=== PATIENT | male | born 1950 | race Caucasian/White ===

== ENCOUNTER → 2020-02-04 10:00 | Outpatient (CLI) | payer MEDICARE, SELFPAY ==
--- NOTE | ~2020-02-04 | XR_ITS ---
XR chest 2V 02/04/2020 10:28 Indication: Asthma. Dyspnea. Procedure: 2 view chest Comparison: Comparison to multiple prior studies sequentially, with oldest reviewed study dated 12/17. Findings: Focal asymmetry in the right apex is identified. There is left basilar infiltrate. Heart si ze normal. Pacemaker leads are stable. Impression: 1: Left basilar infiltrates, atelectasis versus pneumonia. 2: Focal asymmetry right apex. Follow-up CT chest with contrast recommended to exclude mass. Reviewed, dictated and finalized at location A. Impression: 1: Left basilar infiltrates, atelectasis versus pneumonia. 2: Focal asymmetry right apex. Follow-up CT chest with contrast recommended to exclude mass.
== END ==
PROVIDERS: PCP Family Medicine; Visit Provider Family Medicine
DX: J45.909 Unspecified asthma, uncomplicated (principal); R91.8 Other nonspecific abnormal finding of lung field
CPT/HCPCS: 71046

== ENCOUNTER 2020-02-06 13:49 | Outpatient (CLI) | payer MEDICARE, SELFPAY ==
--- NOTE | ~2020-02-06 | CT_ITS ---
EXAMINATION:CT chest w con DATE: 02/06/2020 14:30 INDICATION: Abnormal chest radiographs. TECHNIQUE: Computed tomography (CT) of the chest was performed with 75 mL Omnipaque 350 intravenous c ontrast. Automated exposure control and iterative reconstruction technique were employed. The dose-le ngth product (DLP) was 898.12 mGy-cm. COMPARISON: Chest 2 views 02/04/2020, chest CT 10/04/2016 FINDINGS: The lungs demonstrate mild atelectasis. No pleural effusion. There is left atrial enlargeme nt of the heart. There are coronary artery calcifications. No pericardial effusion. There is a left c hest wall pacer with leads in the right atrium and right ventricle. There are surgical changes of the stomach. There is chronic eventration of anterior right hemidiaphragm. There is a right shoulder art hroplasty. There are bridging endplate osteophytes at multiple levels in the spine, consistent with d iffuse idiopathic skeletal hyperostosis (DISH). There is mild chronic anterior wedging of multiple th oracic vertebral bodies. IMPRESSION: 1. No evidence of malignancy. Reviewed, dictated and finalized at location A.
[2020-02-06 14:23] LABS: Estimated Glomerular Filt Rate > 60
== END 2020-02-06 13:50 | disposition home or self-care (01) ==
LOC: ANHIMG 13:55
PROVIDERS: PCP Family Medicine; Visit Provider Nurse Practitioner Family
DX: R93.89 Abnormal findings on diagnostic imaging of other specified body structures (principal)
CPT/HCPCS: 36415; 71260; Q9967

== ENCOUNTER 2020-08-06 11:22 | Emergency (ER) | payer MEDICARE, SELFPAY ==
[2020-08-06 11:37] VITALS: BP 131/67; PULSE 91; RESP 14; TEMP 36.4; O2SAT 99
--- NOTE | 2020-08-06 11:43 | ED.MALEGU ---
HPI - Male Genitourinary General Chief complaint: Urogenital-Male Stated complaint: uti? Time Seen by Provider: 08/06/20 11:43 Source: patient Mode of arrival: ambulatory Limitations: no limitations History of Present Illness HPI Narrative: Patient is a 69-year-old male with a history of Parkinson's disease, chronic pain who presents for evaluation of urinary retention. 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 Patient was able to have a small amount of urination this morning. He reports some mild lower pelvic pressure. Patient states in the past he has had urinary tract infection leading to urinary retention as well as prostate issues causing urinary retention. He has intermittently required insertion of Gibbons catheters until the retention resolves and often develops retention after surgeries with general anesthesia. Patient denies fever, chills, cough or shortness of breath. Related Data Home Medications Medication Instructions Recorded Confirmed albuterol sulfate 90 mcg/actuation 1 puff INHALATION Q4H PRN 10/31/19 08/06/20 aerosol inhaler cyanocobalamin (vitamin B-12) 100 mcg IM MONTHLY 10/31/19 08/06/20 1,000 mcg/mL injection solution furosemide 40 mg tablet 40 mg PO BID 10/31/19 08/06/20 mirtazapine 30 mg tablet 45 mg PO DAILY tablet 10/31/19 08/06/20 nitroglycerin 0.4 mg sublingual 0.4 mg SUBLINGUAL Q5M PRN 10/31/19 08/06/20 tablet potassium chloride 20 mEq 40 meq PO BID tablet 10/31/19 08/06/20 tablet,extended release sotalol 80 mg tablet 160 mg PO BID tablet 10/31/19 08/06/20 alprazolam 0.5 mg tablet 0.5 mg PO .COMPLEX 12/30/19 08/06/20 carbidopa 25 mg-levodopa 100 mg 2 tablet PO TID tablet 01/06/20 08/06/20 tablet fludrocortisone 0.1 mg tablet 0.1 mg PO BID tablet 01/06/20 08/06/20 oxycodone 15 mg tablet 7.5 mg PO Q6H PRN tablet 08/06/20 08/06/20 Allergies Allergy/AdvReac Type Severity Reaction Status Date / Time midodrine Allergy Intermediate heated red Verified 08/06/20 09:55 rash dichloralphenazone Allergy Mild RED,RASH Verified 08/06/20 09:55 isometheptene Allergy Mild RED,RASH Verified 08/06/20 09:55 amiodarone Allergy Unknown Unknown Verified 08/06/20 09:55 Review of Systems Review of Systems: Narrative: CONSTITUTIONAL: Denies fever CARDIOVASCULAR: Denies chest pain RESPIRATORY: Denies cough or dyspnea. 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 EYES: PERRLA and EOMI. ENT: Nares clear, no rhinorrhea or epistaxis. Mucous membranes moist. NECK: Supple. CHEST: No respiratory distress, breathing even and non labored HEART: Regular rate, sinus rhythm ABDOMEN:Non distended, mild suprapubic tenderness : Testicular edema EXTREMITIES: Normal range of motion. No edema. SKIN: Warm, dry, no rash. NEURO:No focal deficits. Alert and oriented x3 Course Vital Signs Vital signs: Vital Signs Temperature 36.4 C
[2020-08-06 12:06] LABS: Add Urine Microscopic? YES; Appearance Urine Clear (Clear); Bacteria Urine Trace /hpf; Bilirubin Urine Negative (Negative); Blood Urine Negative (Negative); Color Urine Yellow (Yellow); Glucose Urine UA Negative (Negative); Ketones Urine Negative (Negative); Leukocyte Esterase Ur Negative LEU/UL (Negative); Mucus Urine Rare /lpf; Nitrate Urine Negative (Negative); Protein Urine 1+ mg/dL (Negative); Specific Grav Ur 1.019 (1.001-1.035); Squamous Epithelial Cell Urine Occasional /hpf (Few); WBC Urine 0-3 /hpf
[2020-08-06 12:09] LABS: Basophils Percent Auto 0.5 % (0.2-1.2); Eosinophils Absolute Auto 0.1 K/mm3 (0-0.3); Eosinophils Percent Auto 1.8 % (0-4.4); Hematocrit 36.2 % (42.0-52.0); Hemoglobin 11.5 g/dL (14.0-18.0); Immature Granulocyte Absolute 0.02 K/mm3 (0.00-0.031); Immature Granulocyte Percent A 0.3 % (0-0.5); Lymphocytes Absolute Auto 2.08 K/mm3 (0.9-3.2); Lymphocytes Percent Auto 31.8 % (18.3-44.2); Mean Corpuscular HGB Conc 31.8 g/dl (32-36); Mean Corpuscular Hemoglobin 28.7 pg (26-34); Mean Corpuscular Volume 90.3 fl (80-100); Mean Platelet Volume 9.8 fl (7.4-10.4); Monocytes Absolute Auto 0.7 K/mm3 (0.1-0.6); Monocytes Percent Auto 10.2 % (2.6-8.5); Neutrophils Absolute Auto 3.6 K/mm3 (1.3-6.7); Neutrophils Percent Auto 55.4 % (45.5-73.1); Platelet Count Result 226 k/mm3 (150-375); Red Blood Count 4.01 M/mm3 (4.6-6.20); Red Cell Distribution Width 16.2 % (11.5-14.5); White Blood Count 6.6 K/mm3 (4.5-10.0)
[2020-08-06 12:21] LABS: Anion Gap 5 mmol/L (8-16); Blood Urea Nitrogen 14 mg/dL (9-20); Calcium 8.1 mg/dL (8.4-10.2); Carbon Dioxide 33 mmol/L (22-30); Chloride 101 mmol/L (98-107); Estimated CRCL calculation 116 ml/min; Estimated Glomerular Filt Rate > 60; Glucose 114 mg/dL (75-110); Potassium 3.3 mmol/L (3.4-5.0); Sodium 139 mmol/L (137-145)
[2020-08-06 14:22] VITALS: BP 132/68; PULSE 78; RESP 18; O2SAT 99
== END 2020-08-06 14:24 | disposition home or self-care (01) ==
PROVIDERS: Emergency Provider Emergency Medicine; PCP Family Medicine
DX: R33.9 Retention of urine, unspecified (principal); J45.909 Unspecified asthma, uncomplicated; M47.812 Spondylosis without myelopathy or radiculopathy, cervical region; M48.02 Spinal stenosis, cervical region; N40.0 Benign prostatic hyperplasia without lower urinary tract symptoms; D50.9 Iron deficiency anemia, unspecified; M47.816 Spondylosis without myelopathy or radiculopathy, lumbar region; E78.2 Mixed hyperlipidemia; G20 Parkinson's disease; I48.91 Unspecified atrial fibrillation; E11.42 Type 2 diabetes mellitus with diabetic polyneuropathy; Z79.4 Long term (current) use of insulin
CPT/HCPCS: 36415; 80048; 81001; 85025; 99283

== ENCOUNTER 2021-06-09 10:18 | Outpatient (NON) | payer MEDICARE, SELFPAY ==
[2021-06-09 11:05] LABS: Alanine Aminotransferase 8 U/L (4-50); Albumin Level 3.4 g/dL (3.5-5.1); Alkaline Phosphatase 107 U/L (38-126); Anion Gap 8 mmol/L (8-16); Aspartate Amino Transferase 20 U/L (17-59); Bilirubin,Total 0.6 mg/dL (0.2-1.3); Blood Urea Nitrogen 15 mg/dL (9-20); Calcium 8.4 mg/dL (8.4-10.2); Carbon Dioxide 34 mmol/L (22-30); Chloride 99 mmol/L (98-107); Cholesterol 124 mg/dL (0-200); Estimated Glomerular Filt Rate > 60; Glucose 95 mg/dL (75-110); HDL Direct 30 mg/dL; Potassium 2.6 mmol/L (3.4-5.0); Sodium 141 mmol/L (137-145); Triglycerides 135 mg/dL (<150)
[2021-06-09 11:16] LABS: LDL Cholesterol Direct 65 mg/dL
[2021-06-09 11:17] LABS: Iron 38 ug/dL (49-181)
[2021-06-09 11:26] LABS: Percent Iron Saturation 10 % (20-50)
[2021-06-09 11:36] LABS: Prostate Specific Antigen < 0.1 ng/mL (< OR = 4.0)
[2021-06-09 12:01] LABS: Basophils Percent Auto 0.7 % (0.2-1.2); Eosinophils Absolute Auto 0.1 K/mm3 (0-0.3); Eosinophils Percent Auto 3.2 % (0-4.4); Hematocrit 35.3 % (42.0-52.0); Hemoglobin 10.4 g/dL (14.0-18.0); Immature Granulocyte Absolute 0.01 K/mm3 (0.00-0.031); Immature Granulocyte Percent A 0.2 % (0-0.5); Lymphocytes Absolute Auto 1.37 K/mm3 (0.9-3.2); Lymphocytes Percent Auto 33.3 % (18.3-44.2); Mean Corpuscular HGB Conc 29.5 g/dl (32-36); Mean Corpuscular Hemoglobin 24.6 pg (26-34); Mean Corpuscular Volume 83.6 fl (80-100); Mean Platelet Volume 10.2 fl (7.4-10.4); Monocytes Absolute Auto 0.4 K/mm3 (0.1-0.6); Monocytes Percent Auto 9.5 % (2.6-8.5); Neutrophils Absolute Auto 2.2 K/mm3 (1.3-6.7); Neutrophils Percent Auto 53.1 % (45.5-73.1); Platelet Count Result 225 k/mm3 (150-375); Red Blood Count 4.22 M/mm3 (4.6-6.20); Red Cell Distribution Width 17.6 % (11.5-14.5); White Blood Count 4.1 K/mm3 (4.5-10.0)
[2021-06-09 12:05] LABS: Hemoglobin A1C 5.1 % (<5.7)
[2021-06-09 12:07] LABS: Anisocytosis 1+ (NORMAL); Hypochromasia 2+ (NORMAL); Microcytosis 2+ (NORMAL); Platelet Estimate Adequate (Adequate)
[2021-06-09 12:08] LABS: Ovalocytes 1+ (NORMAL)
[2021-06-09 12:12] LABS: Creatinine Urine 224.9 mg/dL
[2021-06-09 12:16] LABS: MALB Creatinine Ratio 6.3 mg/g (0-30); Microalbumin Urine Random 14.1 mg/L (0-16.7)
[2021-06-09 12:29] LABS: Vitamin D 25 Hydroxy 13.3 ng/mL
== END 2021-06-09 10:19 | disposition home or self-care (01) ==
LOC: ANHLAB 10:22 → HOME HLTH 10:24
PROVIDERS: PCP Family Medicine; Visit Provider Family Medicine
DX: D50.9 Iron deficiency anemia, unspecified (principal); E78.2 Mixed hyperlipidemia; G63 Polyneuropathy in diseases classified elsewhere; Z13.220 Encounter for screening for lipoid disorders; E11.40 Type 2 diabetes mellitus with diabetic neuropathy, unspecified; Z79.4 Long term (current) use of insulin; N40.0 Benign prostatic hyperplasia without lower urinary tract symptoms
CPT/HCPCS: 80048; 80061; 80076; 82043; 82306; 82607; 83036; 83540; 83550; 84153; 85025

== ENCOUNTER 2021-06-14 10:21 | Outpatient (NON) | payer MEDICARE, SELFPAY ==
[2021-06-14 10:43] LABS: Anion Gap 2 mmol/L (8-16); Blood Urea Nitrogen 13 mg/dL (9-20); Calcium 8.4 mg/dL (8.4-10.2); Carbon Dioxide 34 mmol/L (22-30); Chloride 103 mmol/L (98-107); Estimated Glomerular Filt Rate > 60; Glucose 86 mg/dL (65-110); Potassium 3.9 mmol/L (3.4-5.0); Sodium 139 mmol/L (137-145)
== END 2021-06-14 10:22 | disposition home or self-care (01) ==
PROVIDERS: PCP Family Medicine; Visit Provider Family Medicine
DX: E87.6 Hypokalemia (principal)
CPT/HCPCS: 80048

== ENCOUNTER 2021-06-30 12:13 | Outpatient (NON) | payer MEDICARE, SELFPAY ==
[2021-06-30 12:41] LABS: Anion Gap 4 mmol/L (8-16); Blood Urea Nitrogen 13 mg/dL (9-20); Calcium 8.6 mg/dL (8.4-10.2); Carbon Dioxide 29 mmol/L (22-30); Chloride 106 mmol/L (98-107); Estimated Glomerular Filt Rate > 60; Glucose 122 mg/dL (65-110); Magnesium 1.8 mg/dL (1.6-2.3); Potassium 3.5 mmol/L (3.4-5.0); Sodium 139 mmol/L (137-145)
== END 2021-06-30 12:14 | disposition home or self-care (01) ==
PROVIDERS: Visit Provider Family Medicine
DX: M47.816 Spondylosis without myelopathy or radiculopathy, lumbar region (principal); E11.40 Type 2 diabetes mellitus with diabetic neuropathy, unspecified; G20 Parkinson's disease; M47.12 Other spondylosis with myelopathy, cervical region
CPT/HCPCS: 80048; 83735

== ENCOUNTER → 2021-07-05 08:48 | Outpatient (CLI) | payer MEDICARE, SELFPAY ==
--- NOTE | ~2021-07-05 | CT_ITS ---
EXAMINATION: CT LE RT wo con DATE: 07/05/2021 09:34 INDICATION: Right lower extremity weakness. TECHNIQUE: Computed tomography (CT) of the right lower extremity was performed without intravenous co ntrast. Automated exposure control and iterative reconstruction technique were employed. The dose-franklyn gth product was 935.19 mGy-cm. COMPARISON: None FINDINGS: There is a total right knee arthroplasty with patellar resurfacing in near-anatomic alignme nt. No periprosthetic lucency to suggest loosening or infection. There is ankylosis of distal fibula, distal tibia, and talus with internal fixation with lateral plate and screws and syndesmotic screws. There is severe right hip osteoarthritis. There is a small knee joint effusion. There is mild fatty atrophy of most of the musculature. There is a right inguinal hernia containing fat. IMPRESSION: 1. Total right knee arthroplasty in near-anatomic alignment. 2. Small right knee joint effusion. 3. Severe right hip osteoarthritis. 4. Ankylosis of distal fibula, distal tibia, and talus. 5. Right inguinal hernia containing fat. Reviewed, dictated and finalized at location A.
== END ==
PROVIDERS: PCP Family Medicine; Visit Provider Physician Assistant
DX: M62.81 Muscle weakness (generalized) (principal); M17.11 Unilateral primary osteoarthritis, right knee; M25.461 Effusion, right knee; K40.90 Unilateral inguinal hernia, without obstruction or gangrene, not specified as recurrent
CPT/HCPCS: 73700

== ENCOUNTER 2021-07-07 15:07 | Outpatient (NON) | payer MEDICARE, SELFPAY ==
[2021-07-07 15:32] LABS: Anion Gap 6 mmol/L (8-16); Blood Urea Nitrogen 10 mg/dL (9-20); Calcium 8.2 mg/dL (8.4-10.2); Carbon Dioxide 29 mmol/L (22-30); Chloride 102 mmol/L (98-107); Estimated Glomerular Filt Rate > 60; Glucose 104 mg/dL (65-110); Potassium 3.4 mmol/L (3.4-5.0); Sodium 137 mmol/L (137-145)
== END 2021-07-07 15:08 | disposition home or self-care (01) ==
LOC: HOME HLTH 15:09
PROVIDERS: PCP Family Medicine; Visit Provider Family Medicine
DX: M47.816 Spondylosis without myelopathy or radiculopathy, lumbar region (principal); M47.12 Other spondylosis with myelopathy, cervical region; E11.40 Type 2 diabetes mellitus with diabetic neuropathy, unspecified; G20 Parkinson's disease
CPT/HCPCS: 80048

== ENCOUNTER 2021-09-15 20:28 | Emergency (ER) | payer MEDICARE, SELFPAY ==
--- NOTE | ~2021-09-15 | XR_ITS ---
EXAMINATION: XR chest 1V portable INDICATION: Fever and altered mental status TECHNIQUE: Portable AP chest at 2139 hours COMPARISON: 02/04/2020 FINDINGS: The lung volumes are low. The lungs are free of acute opacities. There is no pleural effusi on or pneumothorax. The cardiomediastinal silhouette is normal. A dual-lead cardiac pacemaker of the left chest wall ends with leads in expected locations. There is chronic eventration of the anterior r ight hemidiaphragm. IMPRESSION: 1. No acute cardiopulmonary abnormality. Reviewed, dictated and finalized at location A.
--- NOTE | ~2021-09-15 | CT_ITS ---
EXAMINATION: CT brain wo con INDICATION: Altered mental status COMPARISON: 03/06/2018 TECHNIQUE: Standard unenhanced head CT. The dose-length product (DLP) was 1362.00 mGy-cm. The mA was adjusted according to patient size. Iterative reconstruction technique was employed. FINDINGS: Motion artifact slightly limits the examination. There is no acute intraparenchymal hemorrh age. No evidence of mass lesion. No evidence of acute infarction. There is mild periventricular and s ubcortical hypodensity probably related to small vessel ischemic disease. There is mild prominence of the sulci and ventricles related to cerebral atrophy. Intracranial calcified cerebral atherosclerosi s is noted. There are no extra-axial collections. There is no mass effect or midline shift. Changes i n the globes are likely from ocular lens surgery. The visualized sinuses and mastoid air cells are we ll aerated. IMPRESSION: 1. No acute intracranial abnormality. 2. Age related findings. Reviewed, dictated and finalized at location A.
[2021-09-15 20:34] VITALS: BP 161/80; PULSE 86; RESP 20; TEMP 37.7; O2SAT 95
--- NOTE | 2021-09-15 20:58 | PC.NURSE ---
Received call from Patria Lowe at [facility] in [place] for report. Will call back with updates.
--- NOTE | 2021-09-15 21:11 | ECG_ITS ---
Measurements Intervals [place] Rate: 90 P: 40 [place]: 247 QRS: 4 QRSD: 73 T: 25 QT: 328 QTc: 403 Interpretive Statements ELECTRONIC ATRIAL PACEMAKER EARLY PRECORDIAL R/S TRANSITION LOW QRS VOLTAGE IN LIMB LEADS BASELINE ARTIFACT- I, II, III, AVR, AVL, AVF, V2-V5 BORDERLINE ECG Electronically Signed On 09-16-2021 6:24:19 CDT by Burton Dubose D.O.
--- NOTE | 2021-09-15 21:37 | ED.AMS ---
HPI - Altered Mental Status General Chief Complaint: Altered Mental Status Stated Complaint: altered mental status Time Seen by Provider: 09/15/21 21:05 Source: patient, EMS and RN notes reviewed Mode of arrival: EMS Limitations: no limitations History of Present Illness HPI narrative: Patient is a 70-year-old male [facility] due to altered mental status, described as confusion x1 day. Patient also had a fever today. Patient having cough, nasal congestion and body aches. Patient states that he received his Covid booster shot 2 days ago. Patient denies any headache, chest pain, shortness of breath, cough, abdominal pain, nausea, urinary symptoms, vomiting or diarrhea. Related Data Home Medications Medication Instructions Recorded Confirmed mirtazapine 30 mg tablet 45 mg PO HS tablet 10/31/19 08/09/21 sotalol 80 mg tablet 160 mg PO BID tablet 10/31/19 08/09/21 carbidopa 25 mg-levodopa 100 mg 3 tablet PO TID tablet 01/06/20 08/09/21 tablet fludrocortisone 0.1 mg tablet 0.1 mg PO TID tablet 01/06/20 08/09/21 ascorbic acid (vitamin C) 1 g PO DAILY 08/09/21 08/09/21 celecoxib 200 mg PO DAILY 08/09/21 08/09/21 cyanocobalamin (vitamin B-12) 5,000 mcg PO DAILY 08/09/21 08/09/21 ondansetron 4 mg PO Q8H 08/09/21 08/09/21 potassium chloride 40 meq PO BID 08/09/21 08/09/21 tamsulosin [Flomax] 0.4 mg PO HS 08/09/21 08/09/21 trazodone 100 mg PO HS 08/09/21 08/09/21 Allergies Allergy/AdvReac Type Severity Reaction Status Date / Time midodrine Allergy Intermediate heated red Verified 09/15/21 20:54 rash dichloralphenazone Allergy Mild RED,RASH Verified 09/15/21 20:54 isometheptene Allergy Mild RED,RASH Verified 09/15/21 20:54 amiodarone Allergy Unknown Unknown Verified 09/15/21 20:54 Review of Systems Review of Systems: All systems reviewed & are unremarkable except as noted in HPI and below Constitutional: Constitutional: Denies body ache(s), Denies excessive sweating, Denies fatigue, Denies headache(s), Denies lethargy, Denies malaise, Denies weakness and Denies weight loss Eyes: Eyes: Denies blurry vision, Denies change in vision and Denies loss of vision ENT: Denies dizziness, Denies ear discharge, Denies headache(s), Denies lip swelling, Denies epistaxis, Denies nasal congestion, Denies neck pain, Denies throat swelling and Denies tongue swelling Cardiovascular: Cardiovascular: Denies chest pain, Denies chest pain at rest, Denies chest pain with activity, Denies diaphoresis, Denies rapid heart rate, Denies edema, Denies irregular heart rhythm, Denies lightheadedness, Denies palpitations, Denies dyspnea and Denies dyspnea on exertion Respiratory: Respiratory: Denies chest congestion, Denies cough, Denies hemoptysis, Denies dyspnea and Denies dyspnea on exertion Gastrointestinal: Gastrointestinal: Denies abdominal pain, Denies melena, Denies hematochezia, Denies diarrhea, Denies nausea, Denies vomiting and Denies hematemesis Musculoskeletal: Musculoskeletal: Denies abnormal gait, Denies deformity, Denies joint swelling, Denies limited range of motion, Denies neck pain and Denies numbness Neurologic: Denies Abnormal speech present, Denies abnormal gait, Denies dizziness, Denies headache(s), Denies focal weakness, Denies loss of vision, Denies numbness, Denies Other visual disturbances, Denies Sensory deficit (Neuro) and Denies weakness Psychiatric: Psychiatric: Denies depression, Denies auditory hallucinations, Denies homicidal ideation and Denies suicidal ideation Endocrine: Endocrine: Denies cold intolerance, Denies excessive sweating, Denies fatigue, Denies heat intolerance and Denies palpitations Hematologic/Lymphatic: Hematologic/Lymphatic: Denies easy bleeding and Denies easy bruising Allergic/Immunologic: Allergic/Immunologic: Denies lip swelling, Denies throat swelling and Denies tongue swelling PMFSH Past Medical History Medical History Asth
[2021-09-15 22:25] LABS: Basophils Percent Auto 0.6 % (0.2-1.2); Eosinophils Absolute Auto 0.2 K/mm3 (0-0.3); Eosinophils Percent Auto 2.3 % (0-4.4); Hematocrit 33.8 % (42.0-52.0); Hemoglobin 10.3 g/dL (14.0-18.0); Immature Granulocyte Absolute 0.02 K/mm3 (0.00-0.031); Immature Granulocyte Percent A 0.3 % (0-0.5); Lymphocytes Absolute Auto 2.31 K/mm3 (0.9-3.2); Lymphocytes Percent Auto 35.3 % (18.3-44.2); Mean Corpuscular HGB Conc 30.5 g/dl (32-36); Mean Corpuscular Hemoglobin 26.3 pg (26-34); Mean Corpuscular Volume 86.4 fl (80-100); Mean Platelet Volume 10.6 fl (7.4-10.4); Monocytes Absolute Auto 0.8 K/mm3 (0.1-0.6); Monocytes Percent Auto 12.2 % (2.6-8.5); Neutrophils Absolute Auto 3.2 K/mm3 (1.3-6.7); Neutrophils Percent Auto 49.3 % (45.5-73.1); Platelet Count Result 227 k/mm3 (150-375); Red Blood Count 3.91 M/mm3 (4.6-6.20); Red Cell Distribution Width 18.2 % (11.5-14.5); White Blood Count 6.6 K/mm3 (4.5-10.0)
[2021-09-15 22:33] LABS: Add Urine Microscopic? NO; Appearance Urine Clear (Clear); Bilirubin Urine Negative (Negative); Blood Urine Negative (Negative); Color Urine Straw (Yellow); Glucose Urine UA Negative (Negative); Ketones Urine Negative (Negative); Leukocyte Esterase Ur Negative LEU/UL (Negative); Nitrate Urine Negative (Negative); Protein Urine Negative (Negative); Specific Grav Ur 1.006 (1.001-1.035); Urobilinogen Urine Negative mg/dL (<2.0)
[2021-09-15 22:36] LABS: Alanine Aminotransferase 7 U/L (4-50); Albumin Level 3.3 g/dL (3.5-5.1); Alkaline Phosphatase 139 U/L (38-126); Anion Gap 4 mmol/L (8-16); Aspartate Amino Transferase 21 U/L (17-59); Bilirubin,Total 0.5 mg/dL (0.2-1.3); Blood Urea Nitrogen 16 mg/dL (9-20); Calcium 8.5 mg/dL (8.4-10.2); Carbon Dioxide 29 mmol/L (22-30); Chloride 108 mmol/L (98-107); Estimated Glomerular Filt Rate > 60; Glucose 97 mg/dL (65-110); Potassium 4.2 mmol/L (3.4-5.0); Sodium 141 mmol/L (137-145)
[2021-09-15 22:38] VITALS: BP 161/95; PULSE 98; RESP 22; TEMP 37.4; O2SAT 93
[2021-09-15] MEDS: ACETAMINOPHEN 325 MG TABLET 650 MG PO (22:41)
[2021-09-15 23:04] LABS: Lactic Acid Reflex 1.1 mmol/L (0.7-2.1)
[2021-09-15] MEDS: LORazepam (*CRX) 1 MG TABLET PO (23:21)
[2021-09-15 23:24] VITALS: TEMP 37.6
[2021-09-15 23:25] VITALS: BP 169/89; PULSE 90; RESP 20; O2SAT 95
[2021-09-16 00:16] VITALS: BP 172/96; PULSE 81; RESP 20; TEMP 37.2; O2SAT 94
--- NOTE | 2021-09-16 00:48 | PC.NURSE ---
Addendum entered by Lissy Cruz 09/16/21 04:17: 0415: Received updated ETA...approximately 0600 Addendum entered by Lissy Cruz 09/16/21 03:14: 0313: Received updated ETA...approximately 0430 Original Note: Called [facility] for BLS return transport to [place] (trip #[id number])...ETA 0300
[2021-09-16 03:46] LABS: Glucose Point of Care 110 mg/dl (65-105)
--- NOTE | 2021-09-16 05:57 | PC.NURSE ---
[facility] arrived to transport pt back to facility. Report given to EMS. Pt alert and upright on stretcher during transport out of ED.
== END 2021-09-16 05:57 ==
PROVIDERS: Emergency Provider Emergency Medicine; PCP Family Medicine
DX: B34.9 Viral infection, unspecified (principal); R41.82 Altered mental status, unspecified; J45.909 Unspecified asthma, uncomplicated; N40.0 Benign prostatic hyperplasia without lower urinary tract symptoms; D50.9 Iron deficiency anemia, unspecified; E78.2 Mixed hyperlipidemia; E11.42 Type 2 diabetes mellitus with diabetic polyneuropathy; G20 Parkinson's disease; I48.0 Paroxysmal atrial fibrillation; E55.9 Vitamin D deficiency, unspecified; F32.9 Major depressive disorder, single episode, unspecified; Z79.01 Long term (current) use of anticoagulants; Z95.0 Presence of cardiac pacemaker; R94.31 Abnormal electrocardiogram [ECG] [EKG]
CPT/HCPCS: 36415; 70450; 71045; 80053; 81003; 82948; 83605; 85025; 87040; 93005; 96365; 99284; A9270; J0696

== ENCOUNTER 2022-02-01 12:13 | Outpatient (NON) | payer MEDICARE, SELFPAY ==
[2022-02-01 12:45] LABS: Basophils Absolute Auto 0.1 K/mm3 (0.0-0.1); Eosinophils Absolute Auto 0.2 K/mm3 (0-0.3); Eosinophils Percent Auto 4.1 % (0-4.4); Hemoglobin 11.9 g/dL (14.0-18.0); Immature Granulocyte Absolute 0.01 K/mm3 (0.00-0.031); Immature Granulocyte Percent A 0.2 % (0-0.5); Lymphocytes Percent Auto 35.4 % (18.3-44.2); Mean Corpuscular HGB Conc 29.8 g/dl (32-36); Mean Corpuscular Hemoglobin 26.2 pg (26-34); Mean Corpuscular Volume 87.9 fl (80-100); Mean Platelet Volume 10.2 fl (7.4-10.4); Monocytes Absolute Auto 0.5 K/mm3 (0.1-0.6); Monocytes Percent Auto 10.6 % (2.6-8.5); Neutrophils Absolute Auto 2.5 K/mm3 (1.3-6.7); Neutrophils Percent Auto 48.7 % (45.5-73.1); Platelet Count Result 227 k/mm3 (150-375); Red Blood Count 4.55 M/mm3 (4.6-6.20); Red Cell Distribution Width 18.7 % (11.5-14.5); White Blood Count 5.1 K/mm3 (4.5-10.0)
[2022-02-01 12:49] LABS: Albumin Level 3.3 g/dL (3.5-5.1); Alkaline Phosphatase 97 U/L (38-126); Anion Gap 4 mmol/L (8-16); Aspartate Amino Transferase 16 U/L (17-59); Bilirubin,Total 0.4 mg/dL (0.2-1.3); Blood Urea Nitrogen 18 mg/dL (9-20); Calcium 8.3 mg/dL (8.4-10.2); Carbon Dioxide 30 mmol/L (22-30); Chloride 106 mmol/L (98-107); Cholesterol 114 mg/dL (0-200); Estimated Glomerular Filt Rate > 60; Glucose 85 mg/dL (65-110); HDL Direct 27 mg/dL; Potassium 3.9 mmol/L (3.4-5.0); Sodium 140 mmol/L (137-145); Triglycerides 109 mg/dL (<150)
[2022-02-01 13:00] LABS: LDL Cholesterol Direct 74 mg/dL
[2022-02-01 13:05] LABS: Alanine Aminotransferase < 4 U/L (4-50)
[2022-02-01 13:14] LABS: Iron 30 ug/dL (49-181)
[2022-02-01 13:17] LABS: Creatinine Urine 76.5 mg/dL
[2022-02-01 13:22] LABS: Microalbumin Urine Random 10.7 mg/L (0-16.7)
[2022-02-01 13:23] LABS: Percent Iron Saturation 9 % (20-50)
[2022-02-01 14:02] LABS: Vitamin D 25 Hydroxy 17.4 ng/mL
== END 2022-02-01 12:14 | disposition home or self-care (01) ==
PROVIDERS: PCP Family Medicine; Visit Provider Family Medicine
DX: E53.0 Riboflavin deficiency (principal); I48.0 Paroxysmal atrial fibrillation; E11.40 Type 2 diabetes mellitus with diabetic neuropathy, unspecified; Z79.4 Long term (current) use of insulin; E78.2 Mixed hyperlipidemia; Z13.220 Encounter for screening for lipoid disorders; D50.8 Other iron deficiency anemias; E55.9 Vitamin D deficiency, unspecified
CPT/HCPCS: 80048; 80061; 80076; 82043; 82306; 82607; 83036; 83540; 83550; 84443; 85025

== ENCOUNTER 2022-05-01 15:01 | Outpatient (NON) | payer MEDICARE, SELFPAY ==
[2022-05-01 16:22] LABS: Appearance Urine Cloudy (Clear); Bilirubin Urine 1+ (Negative); Color Urine Yellow (Yellow); Glucose Urine UA Negative (Negative); Ketones Urine Negative (Negative); Leukocyte Esterase Ur 1+ LEU/UL (Negative); Nitrate Urine Positive (Negative); Protein Urine 3+ mg/dL (Negative); pH Urine >=9.0 (5.0-9.0)
[2022-05-01 16:26] LABS: Amorphous Sediment Urine Few; Bacteria Urine Trace /hpf; Mucus Urine Rare /lpf; Squamous Epithelial Cell Urine Rare /hpf (Few); WBC Clumps Urine Present /HPF; WBC Urine >75 /hpf
[2022-05-01 16:28] LABS: Add Urine Microscopic? YES; Blood Urine Trace-Intact (Negative)
== END 2022-05-01 15:02 | disposition home or self-care (01) ==
LOC: HOME HLTH 15:05
PROVIDERS: PCP Family Medicine; Visit Provider Family Medicine
DX: N39.0 Urinary tract infection, site not specified (principal); I11.0 Hypertensive heart disease with heart failure; I21.4 Non-ST elevation (NSTEMI) myocardial infarction; G20 Parkinson's disease; I50.9 Heart failure, unspecified
CPT/HCPCS: 81001; 87086; 87088

== ENCOUNTER 2022-08-28 19:26 | Inpatient (IN) | payer MEDICARE, SELFPAY ==
[2022-08-28] VITALS (25 sets, daily range): BP systolic 90–108; BP diastolic 60–81; PULSE 83–94; RESP 11–19; TEMP 36.3; O2SAT 93–100
--- NOTE | ~2022-08-28 | XR_ITS ---
EXAMINATION: XR chest 2V Exam Date/Time: 08/29/2022 13:40 CDT HISTORY: Recent pneumonia Comparison: 09/15/2021. RESULT: Lines, tubes, and devices: Left chest pacer with intact leads. Surgical clips over the stomach. Lungs and pleura: Segmental left posterior basal consolidation. Bilateral costophrenic angle bluntin g. Cardiomediastinal silhouette: Stable. Other: No acute osseous or upper abdominal finding. IMPRESSION: Likely segmental left lower lobe pneumonia. Pulmonary embolism with infarction could appear similar, consider CTPA. Likely small bilateral effusions. Reviewed, dictated and finalized at location K.
--- NOTE | ~2022-08-28 | XR_ITS ---
XR chest 1V portable 09/02/2022 11:47 Indication: Chest congestion Procedure: AP portable chest Comparison: 08/29/2022 Findings: Cardiomegaly. Pacemaker leads are in expected position. Left basilar airspace consolidation . No pneumothorax. There is right shoulder arthroplasty. Impression: 1: Left basilar airspace disease, atelectasis versus pneumonia. Reviewed, dictated and finalized at location A. Impression: 1: Left basilar airspace disease, atelectasis versus pneumonia.
--- NOTE | 2022-08-28 19:47 | ECG_ITS ---
Measurements Intervals [place] Rate: 86 P: 37 [place]: 298 QRS: 253 QRSD: 221 T: 87 QT: 517 QTc: 621 Interpretive Statements ELECTRONIC ATRIAL PACEMAKER ELECTRONIC VENTRICULAR PACEMAKER ABNORMAL RHYTHM ECG COMPARED TO ECG 09/15/2021 22:13:23 VENTRICULAR PACED RHYTHM NOW PRESENT Electronically Signed On 08-29-2022 17:26:17 CDT by Shaina Hernandez M.D.
--- NOTE | 2022-08-28 19:55 | ED.GENADULT ---
HPI - General Adult General Chief complaint: Recheck/Abnormal Lab/Rx Stated complaint: ABN LABS; LOW K Time Seen by Provider: 08/28/22 19:44 History of Present Illness HPI narrative: 71-year-old male with history of Parkinson's, type 2 diabetes, proximal A. fib presents the emergency department from a senior care for evaluation of a low potassium. Patient states he has been having decreased appetite for a period of time. Patient states he does not like the food that is being provided from the senior care. Patient reports he has had approximate 150 pounds of weight loss over the last 9 months. Patient denies any nausea vomiting, chest pain shortness of breath or abdominal pain. Patient is requesting a sandwich. Patient denies any complaints at this time. Patient is on Lasix and does take potassium chloride Related Data Home Medications Medication Instructions Recorded Confirmed mirtazapine 30 mg tablet 45 mg PO HS 10/31/19 01/19/22 sotalol 80 mg tablet 80 mg PO BID 10/31/19 08/29/22 carbidopa 25 mg-levodopa 100 mg 2 tablet PO TID 01/06/20 08/28/22 tablet (Sinemet) fludrocortisone 0.1 mg tablet 0.1 mg PO TID 01/06/20 08/29/22 potassium chloride 20 mEq 20 meq PO BID 08/09/21 08/29/22 tablet,extended release tamsulosin 0.4 mg capsule (Flomax) 0.4 mg PO HS 08/09/21 08/29/22 acetaminophen 650 mg tablet 650 mg PO Q4H PRN Pain (Scale 08/29/22 08/29/22 Score 1-3) aluminum-mag hydroxide-simethicone 30 ml PO Q6H PRN Heartburn 08/29/22 08/29/22 200 mg-200 mg-20 mg/5 mL oral susp calcium carbonate 1,000 mg tablet 1,000 mg PO BID 08/29/22 08/29/22 celecoxib 200 mg capsule 100 mg PO DAILY 08/29/22 08/28/22 clopidogrel 75 mg tablet (Plavix) 75 mg PO DAILY 08/29/22 08/29/22 doxycycline hyclate 100 mg capsule 100 mg PO BID 08/29/22 08/29/22 finasteride 5 mg tablet 5 mg PO DAILY 08/29/22 08/29/22 furosemide 40 mg tablet 40 mg PO BID 08/29/22 08/29/22 hydroxyzine HCl 10 mg tablet 10 mg PO TID PRN Anxiety 08/29/22 08/29/22 ipratropium 0.5 mg-albuterol 3 mg 3 ml inhalation Q6H PRN Shortness 08/29/22 08/29/22 (2.5 mg base)/3 mL nebulization Of Breath Or Wheezing soln ketorolac 30 mg/mL intramuscular 30 mg IM Q8-10H PRN Pain (Scale 08/29/22 08/29/22 syringe Score 7-10) lactobacillus comb no.10 20 20,000 mmu cells PO BID 08/29/22 08/29/22 billion cell capsule (Probiotic) magnesium hydroxide 400 mg/5 mL 30 ml PO DAILY PRN Constipation 08/29/22 08/29/22 oral suspension metolazone 5 mg tablet 5 mg PO DAILY 08/29/22 08/29/22 naloxegol 25 mg tablet 25 mg PO QAM PRN Constipation 08/29/22 08/29/22 nitroglycerin 0.4 mg sublingual 0.4 mg sublingual Q3-5M PRN Chest 08/29/22 08/29/22 tablet (Nitrostat) Pain omeprazole 40 mg capsule,delayed 40 mg PO DAILY 08/29/22 08/29/22 release oxycodone 5 mg tablet 2.5 mg PO Q4H PRN Pain (Scale 08/29/22 08/29/22 Score 4-6) rivaroxaban 20 mg tablet (Xarelto) 20 mg PO HS 08/29/22 08/29/22 topiramate 50 mg tablet 50 mg PO BID 08/29/22 08/29/22 trazodone 100 mg tablet 100 mg PO HS 08/29/22 08/29/22 Allergies Allergy/AdvReac Type Severity Reaction Status Date / Time midodrine Allergy Intermediate heated red Verified 01/19/22 13:15 rash dichloralphenazone Allergy Mild RED,RASH Verified 01/19/22 13:15 isometheptene Allergy Mild RED,RASH Verified 01/19/22 13:15 amiodarone Allergy Unknown Unknown Verified 01/19/22 13:15 Review of Systems Review of Systems: CONSTITUTIONAL: Denies fever, chills, or sweats. EYES: Denies visual changes, redness, or discharge. ENT: Denies rhinorrhea, congestion, sore throat, or otalgia. CARDIOVASCULAR: Denies chest pain, palpitations, or edema. RESPIRATORY: Denies cough or dyspnea. GASTROINTESTINAL: Decreased appetite and GENITOURINARY: Denies dysuria or hematuria. SKIN: Denies rash or itching. MUSCULOSKELETAL: Denies back pain, joint pain, or myalgia. NEUROLOGIC: Denies headache, numbness, or weakness. [facility] Past Medical History Medical History (Reviewed 12/28
[2022-08-28] MEDS: SODIUM CHLORIDE 0.9% IV 1,000 ML 999 ML IV CONT ×2 (20:13→21:39)
[2022-08-28 20:16] LABS: Basophils Percent Auto 0.4 % (0.2-1.2); Eosinophils Absolute Auto 0.1 K/mm3 (0-0.3); Eosinophils Percent Auto 1.7 % (0-4.4); Hemoglobin 13.2 g/dL (14.0-18.0); Immature Granulocyte Absolute 0.02 K/mm3 (0.00-0.031); Immature Granulocyte Percent A 0.4 % (0-0.5); Lymphocytes Absolute Auto 1.71 K/mm3 (0.9-3.2); Lymphocytes Percent Auto 37.2 % (18.3-44.2); Mean Corpuscular HGB Conc 32.2 g/dl (32-36); Mean Corpuscular Hemoglobin 30.5 pg (26-34); Mean Corpuscular Volume 94.7 fl (80-100); Mean Platelet Volume 10.3 fl (7.4-10.4); Monocytes Absolute Auto 0.5 K/mm3 (0.1-0.6); Monocytes Percent Auto 10.9 % (2.6-8.5); Neutrophils Absolute Auto 2.3 K/mm3 (1.3-6.7); Neutrophils Percent Auto 49.4 % (45.5-73.1); Platelet Count Result 213 k/mm3 (150-375); Red Blood Count 4.33 M/mm3 (4.6-6.20); White Blood Count 4.6 K/mm3 (4.5-10.0)
[2022-08-28] MEDS: POTASSIUM CHLORIDE 20 MEQ PACKET (FOR LIQUID) 80 MEQ PO (20:29)
[2022-08-28 20:36] LABS: Alanine Aminotransferase 7 U/L (6-50); Albumin Level 3.2 g/dL (3.5-5.1); Alkaline Phosphatase 89 U/L (38-126); Aspartate Amino Transferase 21 U/L (17-59); Bilirubin,Total 0.7 mg/dL (0.2-1.3); Blood Urea Nitrogen 55 mg/dL (9-20); Calcium 8.1 mg/dL (8.4-10.2); Carbon Dioxide > 40 mmol/L (22-30); Chloride 76 mmol/L (98-107); Estimated Glomerular Filt Rate > 60; Glucose 99 mg/dL (65-110); Potassium 2.2 mmol/L (3.4-5.0); Sodium 137 mmol/L (137-145)
[2022-08-28] MEDS: KCL 20 MEQ/SW 100 ML 100 ML 50 MEQ IVPB (20:56)
[2022-08-28 21:42] LABS: Phosphorus 3.6 mg/dL (2.5-4.5)
[2022-08-28 23:10] LABS: Appearance Urine Clear (Clear); Bilirubin Urine Negative (Negative); Blood Urine Trace-intact (Negative); Color Urine Amber (Yellow); Glucose Urine UA Negative (Negative); Ketones Urine Negative (Negative); Leukocyte Esterase Ur 3+ LEU/UL (Negative); Nitrate Urine Negative (Negative); Protein Urine Negative (Negative); Specific Grav Ur 1.015 (1.001-1.035)
[2022-08-28 23:15] LABS: Bacteria Urine Trace /hpf; WBC Urine 31-50 /hpf
[2022-08-28 23:16] LABS: Add Urine Microscopic? YES
--- NOTE | 2022-08-28 23:56 | ADMGEN ---
This patient, Sohail Lewis, was admitted to Medical Room 347-. Patient/family oriented to hospital policies and general routines including ID bracelet, bed and alarms, visiting hours, pain management, procedures, bathroom and other care routines, personal items, smoking policy, room service/diet, and visiting hours. Information on how to activate the Rapid Response Team has been discussed. Patient/Family are encouraged to report perceived risks to care and to ask questions if they do not understand what they are told or what they should do.
[2022-08-29] VITALS (12 sets, daily range): BP systolic 80–106; BP diastolic 50–66; PULSE 80–100; RESP 18–20; TEMP 36.6–36.8; O2SAT 98–100; BMI 36.1
[2022-08-29] MEDS: SODIUM CHLORIDE 0.9% IV 1,000 ML 100 ML IV CONT ×2 (01:57→09:00)
--- NOTE | 2022-08-29 05:49 | PM.IMHP ---
H&P: HPI History of Present Illness Date/Time: 08/29/22 05:49 Chief Complaint: Low-potassium Narrative: Patient is a 71-year-old male with past medical history of TIA, Parkinson's with dysautonomia, chronic atrial fibrillation on long-term anticoagulation, cardiac pacemaker, diet-controlled type 2 diabetes mellitus, chronic anemia, BPH, coronary artery disease and CHF who presented to the ER from [facility] via EMS due to a potassium level of 2.0. The patient reports that 2 days ago he was having some cough and had a chest x-ray performed in some labs. His potassium returned at 2.0. He was sent in for treatment of this. The patient reports that his cough has improved after they placed him on doxycycline at the senior care. He reports that the x-ray showed possible pneumonia is left lower lobe. He denies any chest pain or shortness of breath. He has not had any palpitations. He reports that he has been in his usual state health. Unfortunately his help was compromised recently by heart attack. He was hospitalized at [facility] and had a cardiac catheterization with a stent placed to the RCA. He has not had any chest pain since that time. He denies lower extremity swelling. He does report a chronic wound to his sacrum. He has been having normally formed bowel movements without hematochezia or melena. He denies any difficulty with urination. He has been in out of various hospitals and rehab facilities was well as nursing homes since August of last year following his pain pump placement in July 2021. The patient has been on metolazone and Lasix since he was discharged from [facility] following his heart attack. Review of Systems Review of Systems: 12 systems were reviewed with pertinent positives and negatives per HPI. Except as documented in the HPI, all other systems were reviewed and are negative. [facility] Past Medical History Medical History (Updated 08/29/22 @ 09:29 by Amanda Frank DO) Asthma Ataxia B12 deficiency Cervical spondylosis with myelopathy Cervical stenosis of spinal canal Dysautonomia orthostatic hypotension syndrome Enlarged prostate without lower urinary tract symptoms (luts) Iron deficiency anemia, unspecified Lumbar spondylosis Lumbar stenosis with neurogenic claudication MDD (major depressive disorder) Mixed hyperlipidemia Parkinsons disease Paroxysmal atrial fibrillation Polyneuropathy associated with underlying disease TIA (transient ischemic attack) (~2014) Type 2 diabetes mellitus with diabetic neuropathy, with long-term current use of insulin Vitamin D deficiency, unspecified Surgical History Surgical History (Updated 08/29/22 @ 09:47 by Amanda Frank DO) H/O gastric sleeve Performed in 1999 and converted to a Calin-en-Y gastric bypass in 2009 the patient's preop weight was 620 lb H/O inguinal hernia repair History of cardiac catheterization X4 History of coronary artery stent placement Most recent stent within the RCA placed June 2022 History of right knee joint replacement History of right shoulder replacement History of Calin-en-Y gastric bypass History of tonsillectomy and adenoidectomy History of ventral hernia repair Implantable intrathecal infusion pump present Morphine pump July 2021 Status post cataract extraction of both eyes with insertion of intraocular lens Status post open reduction with internal fixation of fracture Right ankle fracture with subsequent removal of hardware due to infection Family History Family History Sibling Hypertension Mother Family history of chronic obstructive pulmonary disease Father Carcinoma of colon Other Family history of alcoholism Family history of coronary artery disease Social History Social History (Updated 08/29/22 @ 09:55 by Amanda Frank DO) Social History: Code status: Full code Surrogate decision maker:
[2022-08-29 07:37] LABS: Hematocrit 40.1 % (42.0-52.0); Hemoglobin 12.4 g/dL (14.0-18.0); Mean Corpuscular HGB Conc 30.9 g/dl (32-36); Mean Corpuscular Hemoglobin 30.8 pg (26-34); Mean Corpuscular Volume 99.8 fl (80-100); Mean Platelet Volume 10.4 fl (7.4-10.4); Platelet Count Result 167 k/mm3 (150-375); Red Blood Count 4.02 M/mm3 (4.6-6.20); Red Cell Distribution Width 16.3 % (11.5-14.5); White Blood Count 4.1 K/mm3 (4.5-10.0)
[2022-08-29 07:56] LABS: Blood Urea Nitrogen 44 mg/dL (9-20); Carbon Dioxide > 40 mmol/L (22-30); Chloride 84 mmol/L (98-107); Estimated CRCL calculation 80 ml/min; Estimated Glomerular Filt Rate > 60; Glucose 83 mg/dL (65-110); Potassium 2.6 mmol/L (3.4-5.0); Sodium 141 mmol/L (137-145)
[2022-08-29 08:20] LABS: Glucose Point of Care 72 mg/dl (65-105)
[2022-08-29] MEDS: POTASSIUM CHLORIDE 20 MEQ TABLET 80 MEQ PO (08:57)
[2022-08-29] MEDS: FLUDROCORTISONE ACETATE 0.1 MG TABLET PO ×3 (08:58→18:08)
[2022-08-29] MEDS: SOTALOL HCL 80 MG TABLET PO ×2 (08:58→20:50)
[2022-08-29] MEDS: TOPIRAMATE 25 MG TABLET 50 MG PO ×2 (08:58→18:07)
[2022-08-29] MEDS: CARBIDOPA/LEVODOPA 25/100 MG TABLET 2 TABLET PO ×3 (08:58→18:06)
[2022-08-29] MEDS: CLOPIDOGREL BISULFATE 75 MG TABLET PO (08:59)
[2022-08-29] MEDS: PANTOPRAZOLE 40 MG TABLET PO ×2 (08:59→20:50)
[2022-08-29] MEDS: CELECOXIB 100 MG CAPSULE PO (08:59)
[2022-08-29] MEDS: FERROUS SULFATE 324 MG TABLET PO (08:59)
[2022-08-29] MEDS: CALCIUM CARBONATE (OSCAL) 500 MG TABLET 1000 MG PO ×2 (08:59→18:06)
[2022-08-29] MEDS: PREGABALIN (*CRX) 50 MG CAPSULE 100 MG PO ×3 (08:59→18:06)
[2022-08-29] MEDS: DULoxetine HCL 60 MG CAPSULE.DR PO ×2 (08:59→18:06)
[2022-08-29] MEDS: ACIDOPHILUS/BULGARICUS CHEWABLE TABLET 1 TABLET BY MOUTH ×2 (09:00→18:06)
[2022-08-29] MEDS: FINASTERIDE 5 MG TABLET PO (09:00)
[2022-08-29] MEDS: LEVOTHYROXINE SODIUM 25 MCG TABLET PO (09:00)
[2022-08-29] MEDS: DOXYCYCLINE HYCLATE 100 MG TABLET PO ×2 (09:00→20:49)
[2022-08-29] MEDS: POTASSIUM CHLORIDE 20 MEQ TABLET 40 MEQ PO (10:41)
[2022-08-29 11:29] LABS: SARS-CoV-2 RNA PCR Negative
[2022-08-29 12:22] LABS: Potassium 3.2 mmol/L (3.4-5.0)
[2022-08-29 12:22] LABS: Glucose Point of Care 73 mg/dl (65-105)
[2022-08-29 17:27] LABS: Glucose Point of Care 84 mg/dl (65-105)
[2022-08-29] MEDS: RIVAROXABAN 20 MG TABLET PO (18:08)
[2022-08-29] MEDS: traZODone HCL 50 MG TABLET 100 MG PO (20:49)
[2022-08-29] MEDS: MIRTAZAPINE SOLTAB 15 MG TAB.DISPER 45 MG PO (20:49)
[2022-08-29] MEDS: TAMSULOSIN HCL 0.4 MG CAPSULE PO (20:50)
[2022-08-29 20:54] LABS: Glucose Point of Care 113 mg/dl (65-105)
[2022-08-30] VITALS (11 sets, daily range): BP systolic 90–118; BP diastolic 51–57; PULSE 81–86; RESP 14–16; TEMP 36.4–36.8; O2SAT 95–100
[2022-08-30] MEDS: LEVOTHYROXINE SODIUM 25 MCG TABLET PO (05:27)
[2022-08-30 07:46] LABS: Blood Urea Nitrogen 41 mg/dL (9-20); Calcium 8.4 mg/dL (8.4-10.2); Carbon Dioxide > 40 mmol/L (22-30); Chloride 89 mmol/L (98-107); Estimated CRCL calculation 89 ml/min; Estimated Glomerular Filt Rate > 60; Glucose 81 mg/dL (65-110); Potassium 2.8 mmol/L (3.4-5.0); Sodium 140 mmol/L (137-145)
[2022-08-30 08:28] LABS: Glucose Point of Care 74 mg/dl (65-105)
[2022-08-30] MEDS: FERROUS SULFATE 324 MG TABLET PO (08:44)
[2022-08-30] MEDS: POTASSIUM CHLORIDE INJ 40 MEQ in SODIUM CHLORIDE 0.9% IV 500 ML 130 MEQ IVPB (08:44)
[2022-08-30] MEDS: CARBIDOPA/LEVODOPA 25/100 MG TABLET 2 TABLET PO ×3 (08:44→17:29)
[2022-08-30] MEDS: CELECOXIB 100 MG CAPSULE PO (08:44)
[2022-08-30] MEDS: PREGABALIN (*CRX) 50 MG CAPSULE 100 MG PO ×3 (08:44→17:28)
[2022-08-30] MEDS: POTASSIUM CHLORIDE 20 MEQ TABLET 40 MEQ PO (08:44)
[2022-08-30] MEDS: DOXYCYCLINE HYCLATE 100 MG TABLET PO ×2 (08:45→20:35)
[2022-08-30] MEDS: SOTALOL HCL 80 MG TABLET PO (08:45)
[2022-08-30] MEDS: TOPIRAMATE 25 MG TABLET 50 MG PO ×2 (08:45→17:30)
[2022-08-30] MEDS: CALCIUM CARBONATE (OSCAL) 500 MG TABLET 1000 MG PO ×2 (08:45→17:29)
[2022-08-30] MEDS: DULoxetine HCL 60 MG CAPSULE.DR PO ×2 (08:45→17:29)
[2022-08-30] MEDS: FINASTERIDE 5 MG TABLET PO (08:45)
[2022-08-30] MEDS: PANTOPRAZOLE 40 MG TABLET PO ×2 (08:45→20:35)
[2022-08-30] MEDS: CLOPIDOGREL BISULFATE 75 MG TABLET PO (08:45)
[2022-08-30] MEDS: FLUDROCORTISONE ACETATE 0.1 MG TABLET PO ×3 (08:45→17:29)
[2022-08-30] MEDS: ACIDOPHILUS/BULGARICUS CHEWABLE TABLET 1 TABLET BY MOUTH ×2 (08:45→17:30)
[2022-08-30 12:37] LABS: Glucose Point of Care 162 mg/dl (65-105)
--- NOTE | 2022-08-30 13:43 | PM.IMPN ---
Progress Note: A&P Assessment and Plan (1) Acute hypokalemia: Code(s): E87.6 - Hypokalemia Status: Acute Assessment and Plan: replace and monitor (2) Metabolic alkalosis: Code(s): E87.3 - Alkalosis Status: Acute (3) History of recent pneumonia: Code(s): Z87.01 - Personal history of pneumonia (recurrent) Status: Acute Assessment and Plan: respiratory status okay. (4) Orthostatic hypotension: Code(s): I95.1 - Orthostatic hypotension Status: Acute Assessment and Plan: Resolved. Subjective Date/time seen: 08/30/22 13:43 doing well Exam Narrative: General: alert and oriented Psych: appropriate mood nad affect Eyes: PERRLA Neck: Trachea midline, no new lesions Skin: no changes Lungs: CTA Cardiac: Normal S1,S2, no MGR ABD: soft, nd, nt, nbs Ext: no new lesions, no cce Vasc: Pulses intact Objective Data Vital Signs Vital Signs: Vital Signs - 24 hr 08/29/22 16:00 08/29/22 14:00 08/29/22 20:50 Temperature 98.2 F Pulse Rate 81 94 81 Respiratory Rate 20 Blood Pressure 80/50 L Pulse Oximetry 98 Oxygen Delivery Oxygen Flow Rate 08/29/22 20:00 08/29/22 21:30 08/30/22 00:00 Temperature 97.9 F Pulse Rate 83 85 81 Respiratory Rate 18 Blood Pressure 106/66 Pulse Oximetry 98 Oxygen Delivery Oxygen Flow Rate 08/30/22 04:00 08/30/22 06:00 08/30/22 08:45 Temperature 98.0 F Pulse Rate 83 83 85 Respiratory Rate 16 Blood Pressure 118/54 L Pulse Oximetry 98 Oxygen Delivery Oxygen Flow Rate 08/30/22 08:30 08/30/22 08:30 08/30/22 12:00 Temperature Pulse Rate 82 82 Respiratory Rate Blood Pressure Pulse Oximetry 98 Oxygen Delivery Nasal Cannula Oxygen Flow Rate 2 Intake/Output Intake/Output: Intake & Output 08/27/22 08/28/22 08/29/22 08/30/22 23:59 23:59 23:59 23:59 Intake Total 2100 2042 662 Output Total 1000 Balance 1100 2042 662 Meds/Results Medications: Active Medications Generic Name Dose Route Start Last Admin Trade Name Freq PRN Reason Stop Dose Admin Acetaminophen 650 mg 08/29/22 07:19 Acetaminophen 325 Mg Tablet PO Q4H PRN Pain pain 1-3 or fever Al Hydrox/Mg Hydrox/Simethicone 30 ml 08/29/22 05:51 Mag Hydrox/Al Hydrox/Simeth 30 Ml Udc PO Q6H PRN Heartburn Albuterol 2.5 mg 08/29/22 07:41 Albuterol Sulfate Neb 2.5 Mg/3 Ml Inh INHALATION Q6H PRN Shortness Of Breath Or Wheezing Calcium Carbonate 1,000 mg 08/29/22 09:00 08/30/22 08:45 Calcium Carbonate (Oscal) 500 Mg Tablet PO 1,000 mg BID ROMANA Administration Carbidopa/Levodopa 2 tablet 08/29/22 09:00 08/30/22 12:32 Carbidopa/Levodopa 25/100 Mg Tablet PO 2 tablet TID ROMANA Administration Celecoxib 100 mg 08/29/22 09:00 08/30/22 08:44 Celecoxib 100 Mg Capsule PO 100 mg DAILY ROMANA Administration Clopidogrel Bisulfate 75 mg 08/29/22 09:00 08/30/22 08:45 Clopidogrel Bisulfate 75 Mg Tablet PO 75 mg DAILY ROMANA Administration Doxycycline Hyclate 100 mg 08/29/22 09:00 08/30/22 08:45 Doxycycline Hyclate 100 Mg Tablet PO 100 mg Q12HR ROMANA Administration Duloxetine HCl 60 mg 08/29/22 09:00 08/30/22 08:45 Duloxetine Hcl 60 Mg Capsule.Dr PO 60 mg BID ROMANA Administration Ferrous Sulfate 324 mg 08/29/22 08:00 08/30/22 08:44 Ferrous Sulfate 324 Mg Tablet PO 324 mg DAILY@0800 ROMANA Administration Finasteride 5 mg 08/29/22 09:00 08/30/22 08:45 Finasteride 5 Mg Tablet PO 5 mg DAILY ROMANA Administration Fludrocortisone Acetate 0.1 mg 08/29/22 09:00 08/30/22 12:32 Fludrocortisone Acetate 0.1 Mg Tablet PO 0.1 mg TID ROMANA Administration Hydroxyzine HCl 10 mg 08/29/22 05:51 Hydroxyzine Hcl 10 Mg Tablet PO TID PRN Anxiety Ipratropium Falls 0.5 mg 08/29/22 07:42 Ipratropium Br 0.02% Inh Soln 0.5 Mg/2.5 Ml Vial INHALATION Q6H PRN
[2022-08-30 16:13] LABS: Potassium 3.1 mmol/L (3.4-5.0)
[2022-08-30 17:19] LABS: Glucose Point of Care 97 mg/dl (65-105)
[2022-08-30] MEDS: RIVAROXABAN 20 MG TABLET PO (17:30)
[2022-08-30] MEDS: traZODone HCL 50 MG TABLET 100 MG PO (20:35)
[2022-08-30] MEDS: MIRTAZAPINE SOLTAB 15 MG TAB.DISPER 45 MG PO (20:35)
[2022-08-30] MEDS: TAMSULOSIN HCL 0.4 MG CAPSULE PO (20:35)
[2022-08-30 21:27] LABS: Glucose Point of Care 184 mg/dl (65-105)
[2022-08-31] VITALS (10 sets, daily range): BP systolic 96–103; BP diastolic 54–72; PULSE 82–93; RESP 16–18; TEMP 36.5–36.9; O2SAT 96–100
[2022-08-31] MEDS: LEVOTHYROXINE SODIUM 25 MCG TABLET PO (05:37)
[2022-08-31 05:56] LABS: Blood Urea Nitrogen 38 mg/dL (9-20); Calcium 8.1 mg/dL (8.4-10.2); Carbon Dioxide > 40 mmol/L (22-30); Chloride 90 mmol/L (98-107); Estimated CRCL calculation 89 ml/min; Estimated Glomerular Filt Rate > 60; Glucose 81 mg/dL (65-110); Potassium 2.8 mmol/L (3.4-5.0); Sodium 140 mmol/L (137-145)
[2022-08-31] MEDS: POTASSIUM CHLORIDE 20 MEQ TABLET 40 MEQ PO (06:21)
[2022-08-31 08:43] LABS: Anion Gap 5 mmol/L (8-16); Blood Urea Nitrogen 35 mg/dL (9-20); Calcium 8.2 mg/dL (8.4-10.2); Carbon Dioxide 39 mmol/L (22-30); Chloride 92 mmol/L (98-107); Estimated CRCL calculation 89 ml/min; Estimated Glomerular Filt Rate > 60; Glucose 84 mg/dL (65-110); Potassium 2.9 mmol/L (3.4-5.0); Sodium 136 mmol/L (137-145)
[2022-08-31] MEDS: POTASSIUM CHLORIDE 20 MEQ TABLET.ER 80 MEQ PO ×2 (08:43→17:46)
[2022-08-31] MEDS: PREGABALIN (*CRX) 50 MG CAPSULE 100 MG PO ×3 (08:43→17:54)
[2022-08-31] MEDS: POTASSIUM CHLORIDE INJ 40 MEQ in SODIUM CHLORIDE 0.9% IV 500 ML 130 MEQ IVPB (08:43)
[2022-08-31] MEDS: CARBIDOPA/LEVODOPA 25/100 MG TABLET 2 TABLET PO ×3 (08:44→17:47)
[2022-08-31] MEDS: SOTALOL HCL 80 MG TABLET PO (08:44)
[2022-08-31] MEDS: CALCIUM CARBONATE (OSCAL) 500 MG TABLET 1000 MG PO ×2 (08:44→17:46)
[2022-08-31] MEDS: FLUDROCORTISONE ACETATE 0.1 MG TABLET PO ×3 (08:45→17:47)
[2022-08-31] MEDS: DULoxetine HCL 60 MG CAPSULE.DR PO ×2 (08:45→17:47)
[2022-08-31] MEDS: DOXYCYCLINE HYCLATE 100 MG TABLET PO ×2 (08:45→20:05)
[2022-08-31] MEDS: ACIDOPHILUS/BULGARICUS CHEWABLE TABLET 1 TABLET BY MOUTH ×2 (08:45→17:47)
[2022-08-31] MEDS: TOPIRAMATE 25 MG TABLET 50 MG PO ×2 (08:45→17:46)
[2022-08-31] MEDS: FINASTERIDE 5 MG TABLET PO (08:45)
[2022-08-31] MEDS: PANTOPRAZOLE 40 MG TABLET PO ×2 (08:45→20:05)
[2022-08-31] MEDS: CELECOXIB 100 MG CAPSULE PO (08:45)
[2022-08-31] MEDS: FERROUS SULFATE 324 MG TABLET PO (08:45)
[2022-08-31] MEDS: CLOPIDOGREL BISULFATE 75 MG TABLET PO (08:45)
[2022-08-31 08:46] LABS: Glucose Point of Care 86 mg/dl (65-105)
--- NOTE | 2022-08-31 10:00 | PCPTNOTE ---
Attempted PT evaluation, Pt refused stating I'm too sick. Per RN, pt has been known to refuse therapy and is not assisting with rolling in bed at this time with nursing staff for perineal Hygiene. Pt requesting therapist return later today or tomorrow. Will Follow.
--- NOTE | 2022-08-31 10:33 | PCOTNOTE ---
Attempted to see pt. for occupational therapy evaluation. Pt. declined to work with therapy stating I'm too sick, talk to my nurse. Nursing updated and aware. Following.
--- NOTE | 2022-08-31 11:05 | PM.IMPN ---
Progress Note: A&P Assessment and Plan (1) Acute hypokalemia: Code(s): E87.6 - Hypokalemia Status: Acute Assessment and Plan: replace and monitor likely from diuretics and decreased p.o. intake. Patient is still hypokalemic despite significant replacement x2 days. Will check TTKG, and also check renin aldosterone renal consult (2) Metabolic alkalosis: Code(s): E87.3 - Alkalosis Status: Acute Assessment and Plan: renal consult (3) History of recent pneumonia: Code(s): Z87.01 - Personal history of pneumonia (recurrent) Status: Acute Assessment and Plan: respiratory status okay. (4) Orthostatic hypotension: Code(s): I95.1 - Orthostatic hypotension Status: Acute Assessment and Plan: Resolved. Subjective Date/time seen: 08/31/22 11:05 no new complaints Objective Data Vital Signs Vital Signs: Vital Signs - 24 hr 08/30/22 12:00 08/30/22 14:00 08/30/22 16:00 Temperature 97.6 F Pulse Rate 82 82 86 Respiratory Rate 16 Blood Pressure 98/57 L Pulse Oximetry 95 Oxygen Delivery Oxygen Flow Rate 08/30/22 20:00 08/30/22 22:00 08/30/22 20:30 Temperature 98.2 F Pulse Rate 83 82 83 Respiratory Rate 14 Blood Pressure 90/51 L Pulse Oximetry 100 Oxygen Delivery Oxygen Flow Rate 08/31/22 00:00 08/31/22 04:00 08/31/22 05:17 Temperature 97.7 F Pulse Rate 82 83 86 Respiratory Rate 18 Blood Pressure 103/72 Pulse Oximetry 96 Oxygen Delivery Oxygen Flow Rate 08/31/22 08:44 08/31/22 08:30 08/31/22 08:30 Temperature Pulse Rate 86 85 Respiratory Rate Blood Pressure Pulse Oximetry 97 Oxygen Delivery Nasal Cannula Oxygen Flow Rate 2 Intake/Output Intake/Output: Intake & Output 08/28/22 08/29/22 08/30/22 08/31/22 23:59 23:59 23:59 23:59 Intake Total 2100 2042 662 0 Output Total 1000 Balance 1100 2042 662 0 Meds/Results Medications: Active Medications Generic Name Dose Route Start Last Admin Trade Name Freq PRN Reason Stop Dose Admin Acetaminophen 650 mg 08/29/22 07:19 Acetaminophen 325 Mg Tablet PO Q4H PRN Pain pain 1-3 or fever Al Hydrox/Mg Hydrox/Simethicone 30 ml 08/29/22 05:51 Mag Hydrox/Al Hydrox/Simeth 30 Ml Udc PO Q6H PRN Heartburn Albuterol 2.5 mg 08/29/22 07:41 Albuterol Sulfate Neb 2.5 Mg/3 Ml Inh INHALATION Q6H PRN Shortness Of Breath Or Wheezing Calcium Carbonate 1,000 mg 08/29/22 09:00 08/31/22 08:44 Calcium Carbonate (Oscal) 500 Mg Tablet PO 1,000 mg BID ROMANA Administration Carbidopa/Levodopa 2 tablet 08/29/22 09:00 08/31/22 08:44 Carbidopa/Levodopa 25/100 Mg Tablet PO 2 tablet TID ROMANA Administration Celecoxib 100 mg 08/29/22 09:00 08/31/22 08:45 Celecoxib 100 Mg Capsule PO 100 mg DAILY ROMANA Administration Clopidogrel Bisulfate 75 mg 08/29/22 09:00 08/31/22 08:45 Clopidogrel Bisulfate 75 Mg Tablet PO 75 mg DAILY ROMANA Administration Doxycycline Hyclate 100 mg 08/29/22 09:00 08/31/22 08:45 Doxycycline Hyclate 100 Mg Tablet PO 100 mg Q12HR ROMANA Administration Duloxetine HCl 60 mg 08/29/22 09:00 08/31/22 08:45 Duloxetine Hcl 60 Mg Capsule.Dr PO 60 mg BID ROMANA Administration Ferrous Sulfate 324 mg 08/29/22 08:00 08/31/22 08:45 Ferrous Sulfate 324 Mg Tablet PO 324 mg DAILY@0800 ROMANA Administration Finasteride 5 mg 08/29/22 09:00 08/31/22 08:45 Finasteride 5 Mg Tablet PO 5 mg DAILY ROMANA Administration Fludrocortisone Acetate 0.1 mg 08/29/22 09:00 08/31/22 08:45 Fludrocortisone Acetate 0.1 Mg Tablet PO 0.1 mg TID ROMANA Administration Hydroxyzine HCl 10 mg 08/29/22 05:51 Hydroxyzine Hcl 10 Mg Tablet PO TID PRN Anxiety Potassium Chloride 40 meq/ 520 mls @ 130 mls/hr 08/31/22 07:56 08/31/22 08:43 Sodium Chloride IVPB 08/31/22 11:55 130 mls/hr ONCE ONE Administ
[2022-08-31 12:13] LABS: Glucose Point of Care 130 mg/dl (65-105)
[2022-08-31 12:24] LABS: Potassium Urine Random 72.7 meq/L
--- NOTE | 2022-08-31 13:54 | PM.CNNEP ---
Assessment and Plan Assessment and plan (1) Acute hypokalemia: Code(s): E87.6 - Hypokalemia Status: Acute Assessment and Plan: Sohail has hypokalemia. On admission he was on fludrocortisone and furosemide both of which can lower the potassium. I am not sure iif he is eating all that well so his potassium intake might not be as good either. Other causes of hypokalemia include renal tubular acidosis. However his bicarb level is high. low magnesium can cause low potassium as well. He is on a PPI which can cause hypo magnesemia. Will check a magnesium level. It has been normal in the past. Elevations of the RAAS system could do this as well. usually, however, the blood pressure would be high under these circumstances. Renin and aldosterone are pending There are other genetic defects could that can cause low potassium but I do not think that this has been a lifelong problem. Most likely the reason that it is so hard to correct right now i that he has total body potassium depletion and we have to replete these stores before the serum potassium will come up. At this point I agree with holding off on the diuretics. In the future it might be good for him to be on spironolactone or amiloride to to help mitigate the potassium loss from loop diuretics if he needs them again. I am going to stop his Florinef as well. We can use midodrine for his blood pressure. He is bedridden and uses a Erik lift to move from bed to chair so the orthostatic component of his low blood pressure is not as much of an issue. However his blood pressure even lying runs between 80 and 103. So he will need something. (2) Metabolic alkalosis: Code(s): E87.3 - Alkalosis Status: Acute Assessment and Plan: Bicarbonate level is very high. I suspect that this is because of the diuretics he had before leading to metabolic alkalosis and the persistent hypokalemia causing maintenance hypercarbia. (3) History of recent pneumonia: Code(s): Z87.01 - Personal history of pneumonia (recurrent) Status: Acute Assessment and Plan: Patient has had pneumonia in the past. (4) Orthostatic hypotension: Code(s): I95.1 - Orthostatic hypotension Status: Acute Assessment and Plan: His blood pressure ranges from 80 to 103 even lying down. He will get midodrine History of Present Illness Reason for Consult Consult date: 08/31/22 Chief Complaint Chief complaint: hypokalemia History of Present Illness Narrative: Sohail is a very pleasant 71-year-old gentleman who has multiple medical problems including Parkinson's disease, TIA, coronary disease, congestive heart failure, atrial fibrillation, pacemaker,diabetes, anemia, BPH. The patient came over to the ER from the ER halfway because of a low potassium. In the ER he was evaluated and found to have the low-potassium so he was given supplements admitted. He has been given supplements IV and p.o. but his potassium is not coming up so renal consultation was requested. He says he has frequently had low potassiums in the past. But he has also been on diuretics for a long time. He does not remember if he had low potassium before he was on diuretics or not. 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 He lost about 330 lb he says. he has been eating pretty well he says. He has chronic pain in the low back and is on intrathecal infusion pump. Review of Systems Constitutional: Constitutional: Reports no additional constitutional complaints Eyes: Eyes: Reports no additional eye complaints ENT: Reports system reviewed and no additional complaints, except as documented Cardiovascular: Cardiovascular: Reports no additional cardiovascular complaints Respiratory: Respiratory: Reports no additional respiratory complaints Gastrointestinal: Gastrointestinal: Reports no additional gastrointestinal complaints G
[2022-08-31 16:36] LABS: Magnesium 1.8 mg/dL (1.6-2.3)
[2022-08-31 17:17] LABS: Glucose Point of Care 102 mg/dl (65-105)
[2022-08-31] MEDS: RIVAROXABAN 20 MG TABLET PO (17:46)
[2022-08-31] MEDS: TAMSULOSIN HCL 0.4 MG CAPSULE PO (20:05)
[2022-08-31] MEDS: MIRTAZAPINE SOLTAB 15 MG TAB.DISPER 45 MG PO (20:05)
[2022-08-31] MEDS: traZODone HCL 50 MG TABLET 100 MG PO (20:07)
[2022-08-31 21:28] LABS: Potassium 3.9 mmol/L (3.4-5.0)
[2022-08-31 22:15] LABS: Glucose Point of Care 70 mg/dl (65-105)
[2022-09-01] VITALS (11 sets, daily range): BP systolic 92–110; BP diastolic 49–76; PULSE 80–92; RESP 14–18; TEMP 36.6–37; O2SAT 96–100; BMI 10.0
[2022-09-01 01:38] LABS: Sodium Urine Random 20 meq/L
[2022-09-01] MEDS: LEVOTHYROXINE SODIUM 25 MCG TABLET PO (05:44)
[2022-09-01 05:54] LABS: Albumin Level 2.6 g/dL (3.5-5.1); Anion Gap 8 mmol/L (8-16); Blood Urea Nitrogen 29 mg/dL (9-20); Calcium 8.5 mg/dL (8.4-10.2); Carbon Dioxide 36 mmol/L (22-30); Chloride 100 mmol/L (98-107); Estimated CRCL calculation 89 ml/min; Estimated Glomerular Filt Rate > 60; Glucose 81 mg/dL (65-110); Potassium 3.5 mmol/L (3.4-5.0); Sodium 144 mmol/L (137-145)
[2022-09-01 08:04] LABS: Glucose Point of Care 71 mg/dl (65-105)
[2022-09-01] MEDS: FERROUS SULFATE 324 MG TABLET PO (08:25)
[2022-09-01] MEDS: ACIDOPHILUS/BULGARICUS CHEWABLE TABLET 1 TABLET BY MOUTH ×2 (08:26→17:06)
[2022-09-01] MEDS: CARBIDOPA/LEVODOPA 25/100 MG TABLET 2 TABLET PO ×3 (08:26→17:07)
[2022-09-01] MEDS: CALCIUM CARBONATE (OSCAL) 500 MG TABLET 1000 MG PO ×2 (08:26→17:06)
[2022-09-01] MEDS: CLOPIDOGREL BISULFATE 75 MG TABLET PO (08:27)
[2022-09-01] MEDS: CELECOXIB 100 MG CAPSULE PO (08:27)
[2022-09-01] MEDS: DULoxetine HCL 60 MG CAPSULE.DR PO ×2 (08:27→17:08)
[2022-09-01] MEDS: DOXYCYCLINE HYCLATE 100 MG TABLET PO ×2 (08:27→20:42)
[2022-09-01] MEDS: FLUDROCORTISONE ACETATE 0.1 MG TABLET PO ×3 (08:28→17:08)
[2022-09-01] MEDS: FINASTERIDE 5 MG TABLET PO (08:28)
[2022-09-01] MEDS: PANTOPRAZOLE 40 MG TABLET PO ×2 (08:28→20:42)
[2022-09-01] MEDS: TOPIRAMATE 25 MG TABLET 50 MG PO ×2 (08:29→17:09)
[2022-09-01] MEDS: PREGABALIN (*CRX) 50 MG CAPSULE 100 MG PO ×3 (08:32→17:08)
[2022-09-01] MEDS: SOTALOL HCL 80 MG TABLET PO ×2 (08:34→20:42)
[2022-09-01] MEDS: POTASSIUM CHLORIDE 20 MEQ TABLET.ER 40 MEQ PO ×3 (08:43→17:22)
--- NOTE | 2022-09-01 10:54 | PM.IMPN ---
Progress Note: A&P Assessment and Plan (1) Acute hypokalemia: Code(s): E87.6 - Hypokalemia Status: Acute Assessment and Plan: replace and monitor likely from diuretics and decreased p.o. intake. Patient is still hypokalemic despite significant replacement x2 days. Will check TTKG, and also check renin aldosterone renal consult (2) Metabolic alkalosis: Code(s): E87.3 - Alkalosis Status: Acute Assessment and Plan: renal consult (3) History of recent pneumonia: Code(s): Z87.01 - Personal history of pneumonia (recurrent) Status: Acute Assessment and Plan: respiratory status okay. (4) Orthostatic hypotension: Code(s): I95.1 - Orthostatic hypotension Status: Acute Assessment and Plan: Resolved. Subjective Date/time seen: 09/01/22 10:54 no new complaints Exam Narrative: General: alert and oriented Psych: appropriate mood nad affect Eyes: PERRLA Neck: Trachea midline, no new lesions Skin: no changes Lungs: CTA Cardiac: Normal S1,S2, no MGR ABD: soft, nd, nt, nbs Ext: no new lesions, no cce Vasc: Pulses intact Objective Data Vital Signs Vital Signs: Vital Signs - 24 hr 08/31/22 14:13 08/31/22 12:00 08/31/22 15:20 Temperature 98.4 F Pulse Rate 83 91 Respiratory Rate 18 Blood Pressure 96/54 L Pulse Oximetry 100 Oxygen Delivery Nasal Cannula Oxygen Flow Rate 2 08/31/22 16:00 08/31/22 20:08 08/31/22 20:00 Temperature Pulse Rate 93 86 87 Respiratory Rate Blood Pressure Pulse Oximetry Oxygen Delivery Oxygen Flow Rate 08/31/22 20:00 09/01/22 00:00 09/01/22 04:00 Temperature 97.8 F Pulse Rate 93 82 85 Respiratory Rate 16 Blood Pressure 99/63 L Pulse Oximetry 96 Oxygen Delivery Oxygen Flow Rate 09/01/22 04:50 09/01/22 08:34 09/01/22 08:19 Temperature 97.9 F Pulse Rate 92 80 Respiratory Rate 14 Blood Pressure 103/60 Pulse Oximetry 100 Oxygen Delivery Nasal Cannula Oxygen Flow Rate 2 Intake/Output Intake/Output: Intake & Output 08/29/22 08/30/22 08/31/22 09/01/22 23:59 23:59 23:59 23:59 Intake Total 2 662 1080 422 Output Total 300 Balance 2 662 1080 122 Meds/Results Medications: Active Medications Generic Name Dose Route Start Last Admin Trade Name Freq PRN Reason Stop Dose Admin Acetaminophen 650 mg 08/29/22 07:19 Acetaminophen 325 Mg Tablet PO Q4H PRN Pain pain 1-3 or fever Al Hydrox/Mg Hydrox/Simethicone 30 ml 08/29/22 05:51 Mag Hydrox/Al Hydrox/Simeth 30 Ml Udc PO Q6H PRN Heartburn Albuterol 2.5 mg 08/29/22 07:41 Albuterol Sulfate Neb 2.5 Mg/3 Ml Inh INHALATION Q6H PRN Shortness Of Breath Or Wheezing Calcium Carbonate 1,000 mg 08/29/22 09:00 09/01/22 08:26 Calcium Carbonate (Oscal) 500 Mg Tablet PO 1,000 mg BID ROMANA Administration Carbidopa/Levodopa 2 tablet 08/29/22 09:00 09/01/22 08:26 Carbidopa/Levodopa 25/100 Mg Tablet PO 2 tablet TID ROMANA Administration Celecoxib 100 mg 08/29/22 09:00 09/01/22 08:27 Celecoxib 100 Mg Capsule PO 100 mg DAILY ROMANA Administration Clopidogrel Bisulfate 75 mg 08/29/22 09:00 09/01/22 08:27 Clopidogrel Bisulfate 75 Mg Tablet PO 75 mg DAILY ROMANA Administration Doxycycline Hyclate 100 mg 08/29/22 09:00 09/01/22 08:27 Doxycycline Hyclate 100 Mg Tablet PO 100 mg Q12HR ROMANA Administration Duloxetine HCl 60 mg 08/29/22 09:00 09/01/22 08:27 Duloxetine Hcl 60 Mg Capsule.Dr PO 60 mg BID ROMAAN Administration Ferrous Sulfate 324 mg 08/29/22 08:00 09/01/22 08:25 Ferrous Sulfate 324 Mg Tablet PO 324 mg DAILY@0800 ROMANA Administration Finasteride 5 mg 08/29/22 09:00 09/01/22 08:28 Finasteride 5 Mg Tablet PO 5 mg DAILY ROMANA Administration Fludrocortisone Acetate 0.1 mg 08/29/22 09:00 09/01/22 08:28 Fludrocortisone Acetate 0.1 Mg Tablet PO 0.1 m
[2022-09-01 12:17] LABS: Glucose Point of Care 94 mg/dl (65-105)
--- NOTE | 2022-09-01 12:25 | P.PNNP_ITS ---
Progress Note: A&P Assessment and Plan (1) Acute hypokalemia: Code(s): E87.6 - Hypokalemia Status: Acute Assessment and Plan: * suspect multifactorial etiology: * medications (fludorcortosone + lasix) * poor oral intake * total body potassium depleted state * evaluation to date: * magnesium level okay * K+ better holding florinef and diuretics * aldosterone and renin pending (but suspect this RAAS system is stable) * on high dose K+ supplements (40meq tid) * if diuretics are needed, consider use of spironolactone or amiloride * use midodrine instead of florinef for use/treatment of orthostatic hypotension * follow trend of repeat K+ (2) Metabolic alkalosis: Code(s): E87.3 - Alkalosis Status: Acute Assessment and Plan: * presumably due to overdiuresis/diuretic therapy * follow trend of CO2 levels (3) Orthostatic hypotension: Code(s): I95.1 - Orthostatic hypotension Status: Acute Assessment and Plan: * BP runs 80 to 103 systolic even when supine * on midodrine Will continue to follow. Subjective Date/time seen: 09/01/22 12:25 Chart reviewed - assuming care from Dr. Patel; no acute issues or problems to report at this time; no apparent distress noted; no events overnight or earlier this AM; potassium appears to be doing better as noted by AM labs. Exam Narrative: General: WD/WN male in NAD Heart: normal S1 and S2; no rub Lungs: clear to auscultation Abdomen: soft, nontender, nondistended, positive bowel sounds Extremities: no cyanosis or clubbing; no edema Skin: warm and dry Objective Data Vital Signs Vital Signs: Vital Signs Temp Pulse Resp BP Pulse Ox O2 Del Method O2 Flow Rate 09/01/22 12:00 81 09/01/22 08:00 100 Nasal Cannula 1 09/01/22 08:00 83 09/01/22 08:19 Nasal Cannula 2 09/01/22 08:34 80 09/01/22 04:50 36.6 C 92 14 103/60 100 09/01/22 04:00 85 09/01/22 00:00 82 08/31/22 20:00 36.6 C 93 16 99/63 L 96 08/31/22 20:00 87 08/31/22 20:08 86 Intake/Output Intake/Output: Intake & Output 08/29/22 08/30/22 08/31/22 09/01/22 23:59 23:59 23:59 23:59 Intake Total 2 662 1080 422 Output Total 300 Balance 20412 1080 122 Meds/Results Medications: Active Medications Generic Name Dose Route Start Last Admin Trade Name Freq PRN Reason Stop Dose Admin Acetaminophen 650 mg 08/29/22 07:19 Acetaminophen 325 Mg Tablet PO Q4H PRN Pain pain 1-3 or fever Al Hydrox/Mg Hydrox/Simethicone 30 ml 08/29/22 05:51 Mag Hydrox/Al Hydrox/Simeth 30 Ml Udc PO Q6H PRN Heartburn Albuterol 2.5 mg 08/29/22 07:41 Albuterol Sulfate Neb 2.5 Mg/3 Ml Inh INHALATION Q6H PRN Shortness Of Breath Or Wheezing Calcium Carbonate 1,000 mg 08/29/22 09:00 09/01/22 08:26 Calcium Carbonate (Oscal) 500 Mg Tablet PO 1,000 mg BID ROMANA Administration Carbidopa/Levodopa 2 tablet 08/29/22 09:00 09/01/22 08:26 Carbidopa/Levodopa 25/100 Mg Tablet PO 2 table
--- NOTE | 2022-09-01 12:25 | PM.PNNEP ---
Progress Note: A&P Assessment and Plan (1) Acute hypokalemia: Code(s): E87.6 - Hypokalemia Status: Acute Assessment and Plan: suspect multifactorial etiology: medications (fludorcortosone + lasix) poor oral intake total body potassium depleted state evaluation to date: magnesium level okay K+ better holding florinef and diuretics aldosterone and renin pending (but suspect this RAAS system is stable) on high dose K+ supplements (40meq tid) if diuretics are needed, consider use of spironolactone or amiloride use midodrine instead of florinef for use/treatment of orthostatic hypotension follow trend of repeat K+ (2) Metabolic alkalosis: Code(s): E87.3 - Alkalosis Status: Acute Assessment and Plan: presumably due to overdiuresis/diuretic therapy follow trend of CO2 levels (3) Orthostatic hypotension: Code(s): I95.1 - Orthostatic hypotension Status: Acute Assessment and Plan: BP runs 80 to 103 systolic even when supine on midodrine Will continue to follow. Subjective Date/time seen: 09/01/22 12:25 Chart reviewed - assuming care from Dr. Patel; no acute issues or problems to report at this time; no apparent distress noted; no events overnight or earlier this AM; potassium appears to be doing better as noted by AM labs. Exam Narrative: General: WD/WN male in NAD Heart: normal S1 and S2; no rub Lungs: clear to auscultation Abdomen: soft, nontender, nondistended, positive bowel sounds Extremities: no cyanosis or clubbing; no edema Skin: warm and dry Objective Data Vital Signs Vital Signs: Vital Signs Temp Pulse Resp BP Pulse Ox O2 Del Method O2 Flow Rate 09/01/22 12:00 81 09/01/22 08:00 100 Nasal Cannula 1 09/01/22 08:00 83 09/01/22 08:19 Nasal Cannula 2 09/01/22 08:34 80 09/01/22 04:50 36.6 C 92 14 103/60 100 09/01/22 04:00 85 09/01/22 00:00 82 08/31/22 20:00 36.6 C 93 16 99/63 L 96 08/31/22 20:00 87 08/31/22 20:08 86 Intake/Output Intake/Output: Intake & Output 08/29/22 08/30/22 08/31/22 09/01/22 23:59 23:59 23:59 23:59 Intake Total 2042 662 1080 422 Output Total 300 Balance 2 662 1080 122 Meds/Results Medications: Active Medications Generic Name Dose Route Start Last Admin Trade Name Freq PRN Reason Stop Dose Admin Acetaminophen 650 mg 08/29/22 07:19 Acetaminophen 325 Mg Tablet PO Q4H PRN Pain pain 1-3 or fever Al Hydrox/Mg Hydrox/Simethicone 30 ml 08/29/22 05:51 Mag Hydrox/Al Hydrox/Simeth 30 Ml Udc PO Q6H PRN Heartburn Albuterol 2.5 mg 08/29/22 07:41 Albuterol Sulfate Neb 2.5 Mg/3 Ml Inh INHALATION Q6H PRN Shortness Of Breath Or Wheezing Calcium Carbonate 1,000 mg 08/29/22 09:00 09/01/22 08:26 Calcium Carbonate (Oscal) 500 Mg Tablet PO 1,000 mg BID ROMANA Administration Carbidopa/Levodopa 2 tablet 08/29/22 09:00 09/01/22 08:26 Carbidopa/Levodopa 25/100 Mg Tablet PO 2 tablet TID ROMANA Administration Celecoxib 100 mg 08/29/22 09:00 09/01/22 08:27 Celecoxib 100 Mg Capsule PO 100 mg DAILY ROMANA Administration Clopidogrel Bisulfate 75 mg 08/29/22 09:00 09/01/22 08:27 Clopidogrel Bisulfate 75 Mg Tablet PO 75 mg DAILY ROMANA Administration Doxycycline Hyclate 100 mg 08/29/22 09:00 09/01/22 08:27 Doxycycline Hyclate 100 Mg Tablet PO 100 mg Q12HR ROMANA Administration Duloxetine HCl 60 mg 08/29/22 09:00 09/01/22 08:27 Duloxetine Hcl 60 Mg Capsule.Dr PO 60 mg BID ROMANA Administration Ferrous Sulfate 324 mg 08/29/22 08:00 09/01/22 08:25 Ferrous Sulfate 324 Mg Tablet PO 324 mg DAILY@0800 ROMANA Administration Finasteride 5 mg 08/29/22 09:00 09/01/22 08:28 Finasteride 5 Mg Tablet PO 5 mg DAILY ROMANA Administration Fludrocortisone Acetate 0.1 mg 08/29/22 09:00 09/01/22 08:28 Flud
[2022-09-01 17:06] LABS: Glucose Point of Care 96 mg/dl (65-105)
[2022-09-01] MEDS: RIVAROXABAN 20 MG TABLET PO (17:08)
[2022-09-01 20:36] LABS: Glucose Point of Care 101 mg/dl (65-105)
[2022-09-01] MEDS: traZODone HCL 50 MG TABLET 100 MG PO (20:41)
[2022-09-01] MEDS: MIRTAZAPINE SOLTAB 15 MG TAB.DISPER 45 MG PO (20:42)
[2022-09-01] MEDS: TAMSULOSIN HCL 0.4 MG CAPSULE PO (20:43)
[2022-09-02] VITALS (11 sets, daily range): BP systolic 98–107; BP diastolic 60–69; PULSE 80–108; RESP 16–18; TEMP 35.2–36.7; O2SAT 92–100
[2022-09-02] MEDS: LEVOTHYROXINE SODIUM 25 MCG TABLET PO (05:09)
[2022-09-02 08:12] LABS: Anion Gap 6 mmol/L (8-16); Blood Urea Nitrogen 26 mg/dL (9-20); Calcium 8.2 mg/dL (8.4-10.2); Carbon Dioxide 34 mmol/L (22-30); Chloride 104 mmol/L (98-107); Estimated CRCL calculation 99 ml/min; Estimated Glomerular Filt Rate > 60; Glucose 79 mg/dL (65-110); Potassium 3.7 mmol/L (3.4-5.0); Sodium 144 mmol/L (137-145)
[2022-09-02 09:00] LABS: Glucose Point of Care 63 mg/dl (65-105)
[2022-09-02] MEDS: CALCIUM CARBONATE (OSCAL) 500 MG TABLET 1000 MG PO ×2 (09:06→16:50)
[2022-09-02] MEDS: POTASSIUM CHLORIDE 20 MEQ TABLET.ER 40 MEQ PO ×3 (09:07→16:48)
[2022-09-02] MEDS: SOTALOL HCL 80 MG TABLET PO (09:08)
[2022-09-02] MEDS: DULoxetine HCL 60 MG CAPSULE.DR PO ×2 (09:08→16:58)
[2022-09-02] MEDS: ACIDOPHILUS/BULGARICUS CHEWABLE TABLET 1 TABLET BY MOUTH ×2 (09:08→16:56)
[2022-09-02] MEDS: CELECOXIB 100 MG CAPSULE PO (09:09)
[2022-09-02] MEDS: PREGABALIN (*CRX) 50 MG CAPSULE 100 MG PO ×3 (09:09→16:47)
[2022-09-02] MEDS: FERROUS SULFATE 324 MG TABLET PO (09:09)
[2022-09-02] MEDS: CLOPIDOGREL BISULFATE 75 MG TABLET PO (09:09)
[2022-09-02] MEDS: PANTOPRAZOLE 40 MG TABLET PO ×2 (09:10→21:52)
[2022-09-02] MEDS: FINASTERIDE 5 MG TABLET PO (09:10)
[2022-09-02] MEDS: FLUDROCORTISONE ACETATE 0.1 MG TABLET PO ×3 (09:10→16:50)
[2022-09-02] MEDS: TOPIRAMATE 25 MG TABLET 50 MG PO ×2 (09:10→16:52)
[2022-09-02] MEDS: CARBIDOPA/LEVODOPA 25/100 MG TABLET 2 TABLET PO ×3 (09:11→16:48)
[2022-09-02] MEDS: DOXYCYCLINE HYCLATE 100 MG TABLET PO ×2 (09:11→21:52)
--- NOTE | 2022-09-02 11:25 | PM.PNNEP ---
Progress Note: A&P Assessment and Plan (1) Acute hypokalemia: Code(s): E87.6 - Hypokalemia Status: Acute Assessment and Plan: suspect multifactorial etiology: medications (fludorcortosone + lasix) poor oral intake total body potassium depleted state evaluation to date: magnesium level okay K+ better holding florinef and diuretics aldosterone and renin pending (but suspect this RAAS system is stable) on high dose K+ supplements (40meq tid) if diuretics are needed/resumed, consider use of spironolactone or amiloride along with loop diuretics use midodrine instead of florinef for use/treatment of orthostatic hypotension follow trend of repeat K+ (2) Metabolic alkalosis: Code(s): E87.3 - Alkalosis Status: Acute Assessment and Plan: presumably due to overdiuresis/diuretic therapy follow trend of CO2 levels (3) Orthostatic hypotension: Code(s): I95.1 - Orthostatic hypotension Status: Acute Assessment and Plan: BP runs 80 to 103 systolic even when supine on midodrine Will continue to follow. Subjective Date/time seen: 09/02/22 11:25 Appears to be doing reasonably well; still requiring supplemental oxygen at this time; no other acute issues/events overnight or earlier this AM; patient reports he was on aggressive diuretic therapy since recent hospitalization for NSTEMI and associated fluid overload; no apparent distress at the time of my visit. Exam Narrative: General: WD/WN male in NAD Heart: normal S1 and S2; no rub Lungs: clear but decreased at bases Abdomen: soft, nontender, nondistended, positive bowel sounds Extremities: no cyanosis or clubbing; trace edema Skin: warm and intact Objective Data Vital Signs Vital Signs: Vital Signs Temp Pulse Resp BP Pulse Ox O2 Del Method O2 Flow Rate 09/02/22 08:00 80 09/02/22 09:10 82 92 Nasal Cannula 2 09/02/22 09:08 82 09/02/22 06:00 36.6 C 108 H 16 100/69 92 09/02/22 04:00 81 09/02/22 00:00 83 09/01/22 20:00 82 09/01/22 20:44 36.6 C 82 16 110/76 98 09/01/22 20:42 82 09/01/22 16:00 81 09/01/22 14:00 37.0 C 85 18 92/49 L 96 Intake/Output Intake/Output: Intake & Output 08/30/22 08/31/22 09/01/22 09/02/22 23:59 23:59 23:59 23:59 Intake Total 662 1080 1310 610 Output Total 300 Balance 662 1080 1010 610 Meds/Results Medications: Active Medications Generic Name Dose Route Start Last Admin Trade Name Freq PRN Reason Stop Dose Admin Acetaminophen 650 mg 08/29/22 07:19 Acetaminophen 325 Mg Tablet PO Q4H PRN Pain pain 1-3 or fever Al Hydrox/Mg Hydrox/Simethicone 30 ml 08/29/22 05:51 Mag Hydrox/Al Hydrox/Simeth 30 Ml Udc PO Q6H PRN Heartburn Albuterol 2.5 mg 08/29/22 07:41 Albuterol Sulfate Neb 2.5 Mg/3 Ml Inh INHALATION Q6H PRN Shortness Of Breath Or Wheezing Calcium Carbonate 1,000 mg 08/29/22 09:00 09/02/22 09:06 Calcium Carbonate (Oscal) 500 Mg Tablet PO 1,000 mg BID ROMANA Administration Carbidopa/Levodopa 2 tablet 08/29/22 09:00 09/02/22 13:00 Carbidopa/Levodopa 25/100 Mg Tablet PO 2 tablet TID ROMANA Administration Celecoxib 100 mg 08/29/22 09:00 09/02/22 09:09 Celecoxib 100 Mg Capsule PO 100 mg DAILY ROMANA Administration Clopidogrel Bisulfate 75 mg 08/29/22 09:00 09/02/22 09:09 Clopidogrel Bisulfate 75 Mg Tablet PO 75 mg DAILY ROMANA Administration Doxycycline Hyclate 100 mg 08/29/22 09:00 09/02/22 09:11 Doxycycline Hyclate 100 Mg Tablet PO 100 mg Q12HR ROMANA Administration Duloxetine HCl 60 mg 08/29/22 09:00 09/02/22 09:08 Duloxetine Hcl 60 Mg Capsule.Dr PO 60 mg BID ROMANA Administration Ferrous Sulfate 324 mg 08/29/22 08:00 09/02/22 09:09 Ferrous Sulfate 324 Mg Tablet PO 324 mg DAILY@0800 ROMANA Administration Finasteride 5 mg 08/29/22 09:00 08
--- NOTE | 2022-09-02 11:25 | P.PNNP_ITS ---
Progress Note: A&P Assessment and Plan (1) Acute hypokalemia: Code(s): E87.6 - Hypokalemia Status: Acute Assessment and Plan: * suspect multifactorial etiology: * medications (fludorcortosone + lasix) * poor oral intake * total body potassium depleted state * evaluation to date: * magnesium level okay * K+ better holding florinef and diuretics * aldosterone and renin pending (but suspect this RAAS system is stable) * on high dose K+ supplements (40meq tid) * if diuretics are needed/resumed, consider use of spironolactone or amiloride along with loop diuretics * use midodrine instead of florinef for use/treatment of orthostatic hypotension * follow trend of repeat K+ (2) Metabolic alkalosis: Code(s): E87.3 - Alkalosis Status: Acute Assessment and Plan: * presumably due to overdiuresis/diuretic therapy * follow trend of CO2 levels (3) Orthostatic hypotension: Code(s): I95.1 - Orthostatic hypotension Status: Acute Assessment and Plan: * BP runs 80 to 103 systolic even when supine * on midodrine Will continue to follow. Subjective Date/time seen: 09/02/22 11:25 Appears to be doing reasonably well; still requiring supplemental oxygen at this time; no other acute issues/events overnight or earlier this AM; patient reports he was on aggressive diuretic therapy since recent hospitalization for NSTEMI and associated fluid overload; no apparent distress at the time of my visit. Exam Narrative: General: WD/WN male in NAD Heart: normal S1 and S2; no rub Lungs: clear but decreased at bases Abdomen: soft, nontender, nondistended, positive bowel sounds Extremities: no cyanosis or clubbing; trace edema Skin: warm and intact Objective Data Vital Signs Vital Signs: Vital Signs Temp Pulse Resp BP Pulse Ox O2 Del Method O2 Flow Rate 09/02/22 08:00 80 09/02/22 09:10 82 92 Nasal Cannula 2 09/02/22 09:08 82 09/02/22 06:00 36.6 C 108 H 16 100/69 92 09/02/22 04:00 81 09/02/22 00:00 83 09/01/22 20:00 82 09/01/22 20:44 36.6 C 82 16 110/76 98 09/01/22 20:42 82 10/07/22 16:00 81 09/01/22 14:00 37.0 C 85 18 92/49 L 96 Intake/Output Intake/Output: Intake & Output 08/30/22 08/31/22 09/01/22 09/02/22 23:59 23:59 23:59 23:59 Intake Total 662 1080 1310 610 Output Total 300 Balance 662 1080 1010 610 Meds/Results Medications: Active Medications Generic Name Dose Route Start Last Admin Trade Name Freq PRN Reason Stop Dose Admin Acetaminophen 650 mg 08/29/22 07:19 Acetaminophen 325 Mg Tablet PO Q4H PRN Pain pain 1-3 or fever Al Hydrox/Mg Hydrox/Simethicone 30 ml 08/29/22 05:51 Mag Hydrox/Al Hydrox/Simeth 30 Ml Udc PO Q6H PRN Heartburn Albuterol 2.5 mg 08/29/22 07:41 Albuterol Sulfate Neb 2.5 Mg/3 Ml Inh INHALATION Q6H PRN Shortness Of Breath Or Wheezing Calcium Carbonate 1,000 mg 08/29/22 09:00 09/02/22 09:06 Calcium Carbonate (Oscal) 500 Mg Tablet PO 1,000 mg BID
--- NOTE | 2022-09-02 11:27 | PM.IMPN ---
Progress Note: A&P Assessment and Plan (1) Acute hypokalemia: Code(s): E87.6 - Hypokalemia Status: Acute Assessment and Plan: Likely related to depletion from diuretic therapy. Labs better. (2) Metabolic alkalosis: Code(s): E87.3 - Alkalosis Status: Acute Assessment and Plan: renal consult (3) History of recent pneumonia: Code(s): Z87.01 - Personal history of pneumonia (recurrent) Status: Acute Assessment and Plan: respiratory status okay. (4) Orthostatic hypotension: Code(s): I95.1 - Orthostatic hypotension Status: Acute Assessment and Plan: Resolved. (5) Congestion of upper respiratory tract: Code(s): J39.8 - Other specified diseases of upper respiratory tract Status: Acute Assessment and Plan: Will check an x-ray Wean oxygen BNP ordered Subjective Date/time seen: 09/02/22 11:27 doing ok labs improved chest congestion Exam Narrative: General: alert and oriented Psych: appropriate mood nad affect Eyes: PERRLA Neck: Trachea midline, no new lesions Skin: no changes Lungs: CTA Cardiac: Normal S1,S2, no MGR ABD: soft, nd, nt, nbs Ext: no new lesions, no cce Vasc: Pulses intact Objective Data Vital Signs Vital Signs: Vital Signs - 24 hr 09/01/22 12:00 09/01/22 14:00 09/01/22 16:00 Temperature 98.6 F Pulse Rate 81 85 81 Respiratory Rate 18 Blood Pressure 92/49 L Pulse Oximetry 96 Oxygen Delivery Oxygen Flow Rate 09/01/22 20:42 09/01/22 20:44 09/01/22 20:00 Temperature 97.8 F Pulse Rate 82 82 82 Respiratory Rate 16 Blood Pressure 110/76 Pulse Oximetry 98 Oxygen Delivery Oxygen Flow Rate 09/02/22 00:00 09/02/22 04:00 09/02/22 06:00 Temperature 98 F Pulse Rate 83 81 108 H Respiratory Rate 16 Blood Pressure 100/69 Pulse Oximetry 92 Oxygen Delivery Oxygen Flow Rate 09/02/22 09:08 09/02/22 09:10 09/02/22 08:00 Temperature Pulse Rate 82 82 80 Respiratory Rate Blood Pressure Pulse Oximetry 92 Oxygen Delivery Nasal Cannula Oxygen Flow Rate 2 Intake/Output Intake/Output: Intake & Output 08/30/22 08/31/22 09/01/22 10/08/22 23:59 23:59 23:59 23:59 Intake Total 662 1080 1310 610 Output Total 300 Balance 662 1080 1010 610 Meds/Results Medications: Active Medications Generic Name Dose Route Start Last Admin Trade Name Freq PRN Reason Stop Dose Admin Acetaminophen 650 mg 08/29/22 07:19 Acetaminophen 325 Mg Tablet PO Q4H PRN Pain pain 1-3 or fever Al Hydrox/Mg Hydrox/Simethicone 30 ml 08/29/22 05:51 Mag Hydrox/Al Hydrox/Simeth 30 Ml Udc PO Q6H PRN Heartburn Albuterol 2.5 mg 08/29/22 07:41 Albuterol Sulfate Neb 2.5 Mg/3 Ml Inh INHALATION Q6H PRN Shortness Of Breath Or Wheezing Calcium Carbonate 1,000 mg 08/29/22 09:00 09/02/22 09:06 Calcium Carbonate (Oscal) 500 Mg Tablet PO 1,000 mg BID ROMANA Administration Carbidopa/Levodopa 2 tablet 08/29/22 09:00 09/02/22 09:11 Carbidopa/Levodopa 25/100 Mg Tablet PO 2 tablet TID ROMANA Administration Celecoxib 100 mg 08/29/22 09:00 09/02/22 09:09 Celecoxib 100 Mg Capsule PO 100 mg DAILY ROMANA Administration Clopidogrel Bisulfate 75 mg 08/29/22 09:00 09/02/22 09:09 Clopidogrel Bisulfate 75 Mg Tablet PO 75 mg DAILY ROMANA Administration Doxycycline Hyclate 100 mg 08/29/22 09:00 09/02/22 09:11 Doxycycline Hyclate 100 Mg Tablet PO 100 mg Q12HR ROMANA Administration Duloxetine HCl 60 mg 08/29/22 09:00 09/02/22 09:08 Duloxetine Hcl 60 Mg Capsule.Dr PO 60 mg BID ROMANA Administration Ferrous Sulfate 324 mg 08/29/22 08:00 09/02/22 09:09 Ferrous Sulfate 324 Mg Tablet PO 324 mg DAILY@0800 ROMANA Administration Finasteride 5 mg 08/29/22 09:00 09/02/22 09:10 Finasteride 5 Mg Tablet PO 5 mg DAILY ROMANA Administration Fludrocortisone Acetate 0.1 mg 1
[2022-09-02 12:45] LABS: Glucose Point of Care 79 mg/dl (65-105)
[2022-09-02 13:34] LABS: NT Pro B Type Natriuretic Pept 804 pg/mL (5-100)
[2022-09-02] MEDS: RIVAROXABAN 20 MG TABLET PO (16:51)
[2022-09-02 17:59] LABS: Glucose Point of Care 84 mg/dl (65-105)
[2022-09-02 21:09] LABS: Glucose Point of Care 143 mg/dl (65-105)
[2022-09-02 21:10] LABS: Glucose Point of Care 110 mg/dl (65-105)
[2022-09-02] MEDS: traZODone HCL 50 MG TABLET 100 MG PO (21:52)
[2022-09-02] MEDS: MIRTAZAPINE SOLTAB 15 MG TAB.DISPER 45 MG PO (21:52)
[2022-09-02] MEDS: TAMSULOSIN HCL 0.4 MG CAPSULE PO (21:52)
[2022-09-03] VITALS: PULSE 81
[2022-09-03 04:00] VITALS: PULSE 80
[2022-09-03 05:41] VITALS: BP 101/62; PULSE 77; RESP 20; TEMP 36.6; O2SAT 98
[2022-09-03] MEDS: LEVOTHYROXINE SODIUM 25 MCG TABLET PO (06:06)
[2022-09-03 06:52] LABS: Anion Gap 7 mmol/L (8-16); Blood Urea Nitrogen 22 mg/dL (9-20); Calcium 8.5 mg/dL (8.4-10.2); Carbon Dioxide 33 mmol/L (22-30); Chloride 102 mmol/L (98-107); Estimated CRCL calculation 99 ml/min; Estimated Glomerular Filt Rate > 60; Glucose 72 mg/dL (65-110); Sodium 142 mmol/L (137-145)
[2022-09-03] MEDS: PREGABALIN (*CRX) 50 MG CAPSULE 100 MG PO ×2 (08:26→12:42)
[2022-09-03] MEDS: FINASTERIDE 5 MG TABLET PO (08:27)
[2022-09-03] MEDS: CLOPIDOGREL BISULFATE 75 MG TABLET PO (08:27)
[2022-09-03] MEDS: FLUDROCORTISONE ACETATE 0.1 MG TABLET PO ×2 (08:27→12:40)
[2022-09-03] MEDS: CELECOXIB 100 MG CAPSULE PO (08:27)
[2022-09-03] MEDS: DOXYCYCLINE HYCLATE 100 MG TABLET PO (08:27)
[2022-09-03] MEDS: TOPIRAMATE 25 MG TABLET 50 MG PO (08:27)
[2022-09-03] MEDS: DULoxetine HCL 60 MG CAPSULE.DR PO (08:27)
[2022-09-03] MEDS: FERROUS SULFATE 324 MG TABLET PO (08:27)
[2022-09-03] MEDS: POTASSIUM CHLORIDE 20 MEQ TABLET.ER 40 MEQ PO ×2 (08:28→12:38)
[2022-09-03] MEDS: PANTOPRAZOLE 40 MG TABLET PO (08:28)
[2022-09-03] MEDS: CALCIUM CARBONATE (OSCAL) 500 MG TABLET 1000 MG PO (08:28)
[2022-09-03 08:29] VITALS: PULSE 80
[2022-09-03] MEDS: SOTALOL HCL 80 MG TABLET PO (08:29)
[2022-09-03 08:30] VITALS: PULSE 80; RESP 18; O2SAT 94
[2022-09-03] MEDS: ACIDOPHILUS/BULGARICUS CHEWABLE TABLET 1 TABLET BY MOUTH (08:31)
[2022-09-03] MEDS: CARBIDOPA/LEVODOPA 25/100 MG TABLET 2 TABLET PO ×2 (08:31→12:39)
[2022-09-03 08:50] LABS: Glucose Point of Care 64 mg/dl (65-105)
[2022-09-03 11:01] LABS: Osmolality, Urine 600 mOsm/kg (50-1200)
--- NOTE | 2022-09-03 11:44 | PM.DS ---
DS: Admitting Diagnosis Discharge Date September 03, 2022 Admitting Diagnosis hypokalemia DS: Discharge Diagnosis Discharge Diagnosis (1) Acute hypokalemia: Code(s): E87.6 - Hypokalemia Status: Acute (2) Metabolic alkalosis: Code(s): E87.3 - Alkalosis Status: Acute (3) History of recent pneumonia: Code(s): Z87.01 - Personal history of pneumonia (recurrent) Status: Acute (4) Orthostatic hypotension: Code(s): I95.1 - Orthostatic hypotension Status: Acute (5) Congestion of upper respiratory tract: Code(s): J39.8 - Other specified diseases of upper respiratory tract Status: Acute DS: Summary Hospital Course Hospital Course: patient is a 71-year-old gentleman who came in with hypokalemia. He was also volume depleted. Upon evaluation of the patient he was found to be mildly hypotensive. Hypokalemia was likely related whole-body calcium depletion from diuretic. His diuretics have been stopped blood pressure has been well controlled without any diuretics. He does not appear to be volume low overloaded at this time. His diuretics will be continued to be held on discharge if he needs a diuretic I would recommend potassium-sparing diuretic on discharge. Otherwise he will have some blood work done a couple days follow primary care physician. He can be discharged back to facility Time Spent with Patient Time attestation: Total time spent providing and/or coordinating discharge services: Exam Narrative: General: alert and oriented Psych: appropriate mood nad affect Eyes: PERRLA Neck: Trachea midline, no new lesions Skin: no changes Lungs: CTA Cardiac: Normal S1,S2, no MGR ABD: soft, nd, nt, nbs Ext: no new lesions, no cce Vasc: Pulses intact DS: Data Data Completed and Pending Labs on day of discharge: Labs from last 24 hours 09/03/22 09/03/22 09/02/22 08:45 06:28 20:23 Sodium 142 Potassium 4.0 Chloride 102 Carbon Dioxide 33 H Anion Gap 7 L BUN 22 H Creatinine 0.80 Estim Creat Clear Calc 99 Estimated GFR > 60 Glucose 72 POC Capillary Glucose 64 L 110 H Serum Osmolality Calcium 8.5 NT-Pro-B Natriuret Pep Urine Osmolality 09/02/22 09/02/22 09/02/22 20:20 17:56 12:40 Sodium Potassium Chloride Carbon Dioxide Anion Gap BUN Creatinine Estim Creat Clear Calc Estimated GFR Glucose POC Capillary Glucose 143 H 84 79 Serum Osmolality Calcium NT-Pro-B Natriuret Pep Urine Osmolality 09/02/22 08/31/22 08/31/22 07:47 11:59 08:24 Sodium Potassium Chloride Carbon Dioxide Anion Gap BUN Creatinine Estim Creat Clear Calc Estimated GFR Glucose POC Capillary Glucose Serum Osmolality 302 Calcium NT-Pro-B Natriuret Pep 804 H Urine Osmolality 600 Discharge Plan Discharge Attending physician on discharge: Jose Miguel Jurado Consulting providers: Socrates Patel Discharging Clinician: Jose Miguel Jurado Patient Disposition: Home, Self-Care Activity: no preference Diet: as tolerated Patient Instructions: Antibiotic Form, Heart Failure (DC), Safe Use of Anticoagulants (DC) Stand Alone Forms: General Discharge Information Follow-up/Referrals: Lakhwinder Hermosillo MD [Primary Care Provider] - Discharge Medications: New midodrine 2.5 mg Tablet 5 mg PO TID PRN (Reason: blood pressure below 90) 30 Days Qty: 60 0RF Rx Instructions: for sbp < 90 potassium chloride [K-Tab] 20 mEq Tablet Extended Release 40 meq PO TID 30 Days Qty: 180 0RF Continued sotalol 80 mg tablet 80 mg PO BID mirtazapine 30 mg tablet 45 mg PO HS carbidopa-levodopa [Sinemet] 25-100 mg tablet 2 tablet PO TID Label Comments: Bottle from 12/16- half full fludrocortisone 0.1 mg tablet 0.1 mg PO TID ferrous sulfate 325 mg (65 mg iron) tablet 325
[2022-09-03 12:36] LABS: Glucose Point of Care 39 mg/dl (65-105)
[2022-09-03 13:54] LABS: EDCOVIDSCREEN Negative (Negative)
[2022-09-06 16:04] LABS: PRA 4.17 ng/mL/h (0.25-5.82)
[2022-09-07 16:25] LABS: Renin 4.21 ng/mL/h (0.25-5.82)
== END 2022-09-03 17:35 | DRG 641 ==
LOC: ANHED 20:02 → ANH3MED 23:05
PROVIDERS: Internal Medicine Nephrology; Student in an Organized Health Care Education/Training Program; Admitting Provider Internal Medicine; Emergency Provider Emergency Medicine; PCP Family Medicine; Visit Provider Chiropractor
DX: E87.6 Hypokalemia (principal); T50.2X5A Adverse effect of carbonic-anhydrase inhibitors, benzothiadiazides and other diuretics, initial encounter; E87.3 Alkalosis; I95.1 Orthostatic hypotension; N25.89 Other disorders resulting from impaired renal tubular function; J39.8 Other specified diseases of upper respiratory tract; I25.10 Atherosclerotic heart disease of native coronary artery without angina pectoris; N40.0 Benign prostatic hyperplasia without lower urinary tract symptoms; I48.0 Paroxysmal atrial fibrillation; Z20.822 Contact with and (suspected) exposure to COVID-19; D50.9 Iron deficiency anemia, unspecified; G62.89 Other specified polyneuropathies; M47.812 Spondylosis without myelopathy or radiculopathy, cervical region; M47.816 Spondylosis without myelopathy or radiculopathy, lumbar region; M48.061 Spinal stenosis, lumbar region without neurogenic claudication; E53.8 Deficiency of other specified B group vitamins; G20 Parkinson's disease; E11.42 Type 2 diabetes mellitus with diabetic polyneuropathy; J45.909 Unspecified asthma, uncomplicated; F32.9 Major depressive disorder, single episode, unspecified; E78.2 Mixed hyperlipidemia; Z96.611 Presence of right artificial shoulder joint; Z96.651 Presence of right artificial knee joint; Z96.1 Presence of intraocular lens; Z87.01 Personal history of pneumonia (recurrent); Z98.84 Bariatric surgery status; Z95.5 Presence of coronary angioplasty implant and graft; Z98.42 Cataract extraction status, left eye; Z98.41 Cataract extraction status, right eye; Z86.73 Personal history of transient ischemic attack (TIA), and cerebral infarction without residual deficits; Z79.4 Long term (current) use of insulin; I25.2 Old myocardial infarction
CPT/HCPCS: 36415; 51701; 71045; 71046; 80048; 80053; 80069; 81001; 82088; 82948; 83735; 83880; 83930; 83935; 84100; 84132; 84133; 84244; 84300; 85025; 85027; 87086; 87088; 87426; 93005; 96361; 96365; 96366; 96376; 97161; 97167; 97530; 97535; 99285; A9270; C9803; G0378; J3480; J7030; J7040; U0003; U0005

== ENCOUNTER 2022-10-09 21:52 | Emergency (ER) | payer MEDICARE, SELFPAY ==
[2022-10-09 21:45] VITALS: BP 156/91; PULSE 87; RESP 20; TEMP 36.7; O2SAT 100
[2022-10-09 22:34] VITALS: PULSE 81; RESP 18; O2SAT 100
[2022-10-09 23:00] VITALS: BP 122/74; PULSE 81; RESP 18; O2SAT 100
[2022-10-09 23:53] LABS: Basophils Percent Auto 0.7 % (0.2-1.2); Eosinophils Absolute Auto 0.1 K/mm3 (0-0.3); Eosinophils Percent Auto 2.2 % (0-4.4); Hematocrit 37.2 % (42.0-52.0); Hemoglobin 11.9 g/dL (14.0-18.0); Immature Granulocyte Absolute 0.01 K/mm3 (0.00-0.031); Immature Granulocyte Percent A 0.2 % (0-0.5); Lymphocytes Absolute Auto 1.73 K/mm3 (0.9-3.2); Lymphocytes Percent Auto 31.7 % (18.3-44.2); Mean Corpuscular Hemoglobin 31.6 pg (26-34); Mean Corpuscular Volume 98.7 fl (80-100); Mean Platelet Volume 9.3 fl (7.4-10.4); Monocytes Absolute Auto 0.5 K/mm3 (0.1-0.6); Monocytes Percent Auto 9.7 % (2.6-8.5); Neutrophils Percent Auto 55.5 % (45.5-73.1); Platelet Count Result 160 k/mm3 (150-375); Red Blood Count 3.77 M/mm3 (4.6-6.20); Red Cell Distribution Width 15.6 % (11.5-14.5); White Blood Count 5.5 K/mm3 (4.5-10.0)
[2022-10-09] MEDS: ONDANSETRON INJ 4 MG/2 ML VIAL IV PUSH (23:56)
[2022-10-09 23:57] VITALS: BP 140/83; PULSE 81; RESP 18; O2SAT 100
[2022-10-10] VITALS (12 sets, daily range): BP systolic 94–135; BP diastolic 52–79; PULSE 70–99; RESP 16–18; O2SAT 97–100
[2022-10-10 00:07] LABS: Albumin Level 2.5 g/dL (3.5-5.1); Alkaline Phosphatase 91 U/L (38-126); Anion Gap 6 mmol/L (8-16); Aspartate Amino Transferase 10 U/L (17-59); Bilirubin,Total 0.8 mg/dL (0.2-1.3); Blood Urea Nitrogen 12 mg/dL (9-20); Calcium 7.8 mg/dL (8.4-10.2); Carbon Dioxide 25 mmol/L (22-30); Chloride 107 mmol/L (98-107); Estimated CRCL calculation 177 ml/min; Estimated Glomerular Filt Rate > 60; Glucose 73 mg/dL (65-110); Lipase 22 U/L (23-300); Potassium 3.5 mmol/L (3.4-5.0); Sodium 138 mmol/L (137-145)
[2022-10-10 00:11] LABS: Mucus Urine Rare /lpf; RBC Urine 0-2 /hpf (0-2); Squamous Epithelial Cell Urine Rare /hpf (Few); WBC Urine >75 /hpf
[2022-10-10 00:12] LABS: Add Urine Microscopic? YES; Appearance Urine Turbid (Clear); Bilirubin Urine 1+ (Negative); Blood Urine Negative (Negative); Color Urine Brown (Yellow); Glucose Urine UA Negative (Negative); Ketones Urine 2+ mg/dL (Negative); Leukocyte Esterase Ur 1+ LEU/UL (Negative); Nitrate Urine Negative (Negative); Protein Urine 1+ mg/dL (Negative); Specific Grav Ur 1.015 (1.001-1.035)
[2022-10-10 00:18] LABS: Alanine Aminotransferase < 6 U/L (6-50)
[2022-10-10] MEDS: SODIUM CHLORIDE 0.9% IV 500 ML 999 ML IV CONT (00:28)
--- NOTE | 2022-10-10 01:55 | PC.NURSE ---
called [facility] to request transport. ETA [id number]
--- NOTE | 2022-10-10 02:15 | ED.GENADULT ---
HPI - General Adult General Chief complaint: Abdominal Pain Stated complaint: ABD PAIN Time Seen by Provider: 10/09/22 22:06 Source: patient Mode of arrival: ambulatory Limitations: no limitations History of Present Illness HPI narrative: 72-year-old male with complicated past medical history presents from the care home today with complaints of nausea states it started after he took his potassium today. Patient denies any abdominal pain, dysuria, urinary frequency, fevers, body aches, chills. Related Data Home Medications Medication Instructions Recorded Confirmed mirtazapine 30 mg tablet 45 mg PO HS 10/31/19 08/29/22 sotalol 80 mg tablet 80 mg PO BID 10/31/19 08/29/22 carbidopa 25 mg-levodopa 100 mg 2 tablet PO TID 01/06/20 08/28/22 tablet (Sinemet) fludrocortisone 0.1 mg tablet 0.1 mg PO TID 01/06/20 08/29/22 tamsulosin 0.4 mg capsule (Flomax) 0.4 mg PO HS 08/09/21 08/29/22 acetaminophen 650 mg tablet 650 mg PO Q4H PRN Pain (Scale 08/29/22 08/29/22 Score 1-3) aluminum-mag hydroxide-simethicone 30 ml PO Q6H PRN Heartburn 08/29/22 08/29/22 200 mg-200 mg-20 mg/5 mL oral susp calcium carbonate 1,000 mg tablet 1,000 mg PO BID 08/29/22 08/29/22 celecoxib 200 mg capsule 100 mg PO DAILY 08/29/22 08/28/22 clopidogrel 75 mg tablet (Plavix) 75 mg PO DAILY 08/29/22 08/29/22 doxycycline hyclate 100 mg capsule 100 mg PO BID 08/29/22 08/29/22 finasteride 5 mg tablet 5 mg PO DAILY 08/29/22 08/29/22 hydroxyzine HCl 10 mg tablet 10 mg PO TID PRN Anxiety 08/29/22 08/29/22 ipratropium 0.5 mg-albuterol 3 mg 3 ml inhalation Q6H PRN Shortness 08/29/22 08/29/22 (2.5 mg base)/3 mL nebulization Of Breath Or Wheezing soln ketorolac 30 mg/mL intramuscular 30 mg IM Q8-10H PRN Pain (Scale 08/29/22 08/29/22 syringe Score 7-10) lactobacillus comb no.10 20 20,000 mmu cells PO BID 08/29/22 08/29/22 billion cell capsule (Probiotic) magnesium hydroxide 400 mg/5 mL 30 ml PO DAILY PRN Constipation 08/29/22 08/29/22 oral suspension naloxegol 25 mg tablet 25 mg PO QAM PRN Constipation 08/29/22 08/29/22 nitroglycerin 0.4 mg sublingual 0.4 mg sublingual Q3-5M PRN Chest 08/29/22 08/29/22 tablet (Nitrostat) Pain omeprazole 40 mg capsule,delayed 40 mg PO DAILY 08/29/22 08/29/22 release oxycodone 5 mg tablet 2.5 mg PO Q4H PRN Pain (Scale 08/29/22 08/29/22 Score 4-6) rivaroxaban 20 mg tablet (Xarelto) 20 mg PO HS 08/29/22 08/29/22 topiramate 50 mg tablet 50 mg PO BID 08/29/22 08/29/22 trazodone 100 mg tablet 100 mg PO HS 08/29/22 08/29/22 Allergies Allergy/AdvReac Type Severity Reaction Status Date / Time midodrine Allergy Intermediate heated red Verified 01/19/22 13:15 rash dichloralphenazone Allergy Mild RED,RASH Verified 01/19/22 13:15 isometheptene Allergy Mild RED,RASH Verified 01/19/22 13:15 amiodarone Allergy Unknown Unknown Verified 01/19/22 13:15 Review of Systems Review of Systems: CONSTITUTIONAL: Denies fever, chills, or sweats. EYES: Denies visual changes, redness, or discharge. ENT: Denies rhinorrhea, congestion, sore throat, or otalgia. CARDIOVASCULAR: Denies chest pain, palpitations, or edema. RESPIRATORY: Denies cough or dyspnea. GASTROINTESTINAL: Nausea. Denies abdominal pain, vomiting, or diarrhea. GENITOURINARY: Denies dysuria or hematuria. SKIN: Denies rash or itching. MUSCULOSKELETAL: Denies back pain, joint pain, or myalgia. NEUROLOGIC: Denies headache, numbness, dizziness, or weakness. PSYCHIATRIC: Denies anxiety or depression. [facility] Past Medical History Medical History Asthma Ataxia B12 deficiency Cervical spondylosis with myelopathy Cervical stenosis of spinal canal Dysautonomia orthostatic hypotension syndrome Enlarged prostate without lower urinary tract symptoms (luts) Iron deficiency anemia, unspecified Lumbar spondylosis Lumbar stenosis with neurogenic claudication MDD (major depressive disorder) Mixed hyperlipidemia Parkinsons disease Parox
--- NOTE | 2022-10-10 04:30 | PC.NURSE ---
Addendum entered by Fatou Stewart 10/10/22 04:30: [facility], [facility] and [facility] not available sue. Original Note: called [facility] for ETA update. ETA 0545 [facility], [facility] and [facility] not avaiabl
--- NOTE | 2022-10-10 07:03 | PC.NURSE ---
[facility] here.
== END 2022-10-10 07:15 ==
PROVIDERS: Emergency Provider Nurse Practitioner Family; PCP Family Medicine
DX: N39.0 Urinary tract infection, site not specified (principal); G20 Parkinson's disease; I48.0 Paroxysmal atrial fibrillation; J45.909 Unspecified asthma, uncomplicated; E11.42 Type 2 diabetes mellitus with diabetic polyneuropathy; E78.2 Mixed hyperlipidemia; N40.0 Benign prostatic hyperplasia without lower urinary tract symptoms; D50.9 Iron deficiency anemia, unspecified; E53.8 Deficiency of other specified B group vitamins; E55.9 Vitamin D deficiency, unspecified; F32.9 Major depressive disorder, single episode, unspecified; Z86.73 Personal history of transient ischemic attack (TIA), and cerebral infarction without residual deficits; Z98.84 Bariatric surgery status; Z95.5 Presence of coronary angioplasty implant and graft; Z96.651 Presence of right artificial knee joint; Z96.611 Presence of right artificial shoulder joint; Z98.42 Cataract extraction status, left eye; Z98.41 Cataract extraction status, right eye; Z96.1 Presence of intraocular lens; Z79.01 Long term (current) use of anticoagulants; Z79.02 Long term (current) use of antithrombotics/antiplatelets
CPT/HCPCS: 36415; 51701; 80053; 81001; 83690; 85025; 87086; 96365; 96375; 99284; J0696; J2405; J7040

== ENCOUNTER 2022-10-25 19:02 | Inpatient (IN) | payer MEDICARE, SELFPAY ==
[2022-10-25] VITALS (23 sets, daily range): BP systolic 100–151; BP diastolic 63–97; PULSE 79–96; RESP 12–20; TEMP 36.7; O2SAT 97–99
--- NOTE | ~2022-10-25 | XR_ITS ---
EXAMINATION: XR chest 1V portable Exam Date/Time: 10/25/2022 19:42 OUTPATIENT SURGERY RN HISTORY: Increased weakness x 2 days. No chest complaints Comparison: 09/02/2022. RESULT: Lines, tubes, and devices: Left chest pacer with intact leads. Lungs and pleura: Increased, now moderate left lateral costophrenic angle blunting and hazy left low er lung opacity. Unchanged minimal right costophrenic angle blunting which may represent trace right pleural effusion versus chronic pleural scarring. Linear right perihilar atelectasis. Cardiomediastinal silhouette: Stable. Other: No acute osseous or upper abdominal finding. IMPRESSION: Small to moderate left pleural effusion with adjacent airspace disease, likely atelectasis. Infection not excluded. Reviewed, dictated and finalized at location K. ATIENT SURGERY RN
--- NOTE | 2022-10-25 19:09 | ECG_ITS ---
Measurements Intervals Hardy Rate: 87 P: -84 IA: 344 QRS: -73 QRSD: 168 T: 87 QT: 473 QTc: 570 Interpretive Statements ELECTRONIC ATRIAL PACEMAKER ELECTRONIC VENTRICULAR PACEMAKER WITH INHIBITION BASELINE ARTIFACT- I, II, III, AVR, AVL, AVF, V1-V6 NO FURTHER INTERPRETATION IS POSSIBLE ATYPICAL ECG COMPARED TO ECG 08/28/2022 20:30:59 NO SIGNIFICANT CHANGES Electronically Signed On 10-25-2022 21:04:51 ENVIRONMENTAL DEPARTMENT MANAGER by Burton Dubose D.O.
[2022-10-25 19:22] LABS: Basophils Absolute Auto 0.1 K/mm3 (0.0-0.1); Basophils Percent Auto 0.8 % (0.2-1.2); Eosinophils Absolute Auto 0.1 K/mm3 (0-0.3); Eosinophils Percent Auto 1.8 % (0-4.4); Hematocrit 43.6 % (42.0-52.0); Hemoglobin 13.8 g/dL (14.0-18.0); Immature Granulocyte Absolute 0.03 K/mm3 (0.00-0.031); Immature Granulocyte Percent A 0.5 % (0-0.5); Lymphocytes Absolute Auto 2.51 K/mm3 (0.9-3.2); Mean Corpuscular HGB Conc 31.7 g/dl (32-36); Mean Corpuscular Hemoglobin 31.5 pg (26-34); Mean Corpuscular Volume 99.5 fl (80-100); Mean Platelet Volume 10.3 fl (7.4-10.4); Monocytes Absolute Auto 0.5 K/mm3 (0.1-0.6); Neutrophils Absolute Auto 2.7 K/mm3 (1.3-6.7); Neutrophils Percent Auto 45.9 % (45.5-73.1); Platelet Count Result 208 k/mm3 (150-375); Red Blood Count 4.38 M/mm3 (4.6-6.20); Red Cell Distribution Width 15.8 % (11.5-14.5)
--- NOTE | 2022-10-25 19:26 | ED.GENADULT ---
HPI - General Adult General Chief complaint: Weakness Stated complaint: CAN'T SWALLOW PILLS Time Seen by Provider: 10/25/22 19:04 History of Present Illness HPI narrative: This is a 72-year-old [place] [facility] patient with history of CVA with deficits, Parkinson's disease and coronary artery disease presenting to ED with generalized weakness. Patient says started feeling weak yesterday. He has also had some nausea. Patient was sent from the [place] [facility] because he has been refusing to take his potassium supplementation. The patient states that he is having difficulty swallowing the pills. The patient denies fever, chills, chest pain, difficulty breathing, abdominal pain, vomiting or diarrhea. He is nonambulatory at baseline due to the CVA. He is A&O x4 which is his baseline. Related Data Home Medications Medication Instructions Recorded Confirmed mirtazapine 30 mg tablet 45 mg PO HS 10/31/19 08/29/22 sotalol 80 mg tablet 80 mg PO BID 10/31/19 08/29/22 carbidopa 25 mg-levodopa 100 mg 2 tablet PO TID 01/06/20 08/28/22 tablet (Sinemet) fludrocortisone 0.1 mg tablet 0.1 mg PO TID 01/06/20 08/29/22 tamsulosin 0.4 mg capsule (Flomax) 0.4 mg PO HS 08/09/21 08/29/22 acetaminophen 650 mg tablet 650 mg PO Q4H PRN Pain (Scale 08/29/22 08/29/22 Score 1-3) aluminum-mag hydroxide-simethicone 30 ml PO Q6H PRN Heartburn 08/29/22 08/29/22 200 mg-200 mg-20 mg/5 mL oral susp calcium carbonate 1,000 mg tablet 1,000 mg PO BID 08/29/22 08/29/22 celecoxib 200 mg capsule 100 mg PO DAILY 08/29/22 08/28/22 clopidogrel 75 mg tablet (Plavix) 75 mg PO DAILY 08/29/22 08/29/22 doxycycline hyclate 100 mg capsule 100 mg PO BID 08/29/22 08/29/22 finasteride 5 mg tablet 5 mg PO DAILY 08/29/22 08/29/22 hydroxyzine HCl 10 mg tablet 10 mg PO TID PRN Anxiety 08/29/22 08/29/22 ipratropium 0.5 mg-albuterol 3 mg 3 ml inhalation Q6H PRN Shortness 08/29/22 08/29/22 (2.5 mg base)/3 mL nebulization Of Breath Or Wheezing soln ketorolac 30 mg/mL intramuscular 30 mg IM Q8-10H PRN Pain (Scale 08/29/22 08/29/22 syringe Score 7-10) lactobacillus comb no.10 20 20,000 mmu cells PO BID 08/29/22 08/29/22 billion cell capsule (Probiotic) magnesium hydroxide 400 mg/5 mL 30 ml PO DAILY PRN Constipation 08/29/22 08/29/22 oral suspension naloxegol 25 mg tablet 25 mg PO QAM PRN Constipation 08/29/22 08/29/22 nitroglycerin 0.4 mg sublingual 0.4 mg sublingual Q3-5M PRN Chest 08/29/22 08/29/22 tablet (Nitrostat) Pain omeprazole 40 mg capsule,delayed 40 mg PO DAILY 08/29/22 08/29/22 release oxycodone 5 mg tablet 2.5 mg PO Q4H PRN Pain (Scale 08/29/22 08/29/22 Score 4-6) rivaroxaban 20 mg tablet (Xarelto) 20 mg PO HS 08/29/22 08/29/22 topiramate 50 mg tablet 50 mg PO BID 08/29/22 08/29/22 trazodone 100 mg tablet 100 mg PO HS 08/29/22 08/29/22 Allergies Allergy/AdvReac Type Severity Reaction Status Date / Time midodrine Allergy Intermediate heated red Verified 01/19/22 13:15 rash dichloralphenazone Allergy Mild RED,RASH Verified 01/19/22 13:15 isometheptene Allergy Mild RED,RASH Verified 01/19/22 13:15 amiodarone Allergy Unknown Unknown Verified 01/19/22 13:15 Review of Systems Review of Systems: CONSTITUTIONAL: Denies night sweats. EYES: No eye pain ENT: Denies rhinorrhea CARDIOVASCULAR: Denies palpitations RESPIRATORY: Denies hemoptysis GASTROINTESTINAL: Denies hematemesis GENITOURINARY: Denies hematuria. SKIN: Denies rash MUSCULOSKELETAL: Denies myalgia. NEUROLOGIC: Denies weakness. PSYCHIATRIC: Denies delusions PMFSH Past Medical History Medical History Asthma Ataxia B12 deficiency Cervical spondylosis with myelopathy Cervical stenosis of spinal canal Dysautonomia orthostatic hypotension syndrome Enlarged prostate without lower urinary tract symptoms (luts) Iron deficiency anemia, unspecified Lumbar spondylosis Lumbar stenosis with neurogenic claudication MDD (major depressive disorder) M
[2022-10-25 19:33] LABS: INR 1.3; Prothrombin Time 15.5 Seconds (11.1-14.7)
[2022-10-25 19:38] LABS: Alanine Aminotransferase 7 U/L (6-50); Albumin Level 2.5 g/dL (3.5-5.1); Alkaline Phosphatase 71 U/L (38-126); Anion Gap -3 mmol/L (8-16); Aspartate Amino Transferase 15 U/L (17-59); Bilirubin,Total 0.7 mg/dL (0.2-1.3); Blood Urea Nitrogen 14 mg/dL (9-20); Calcium 7.6 mg/dL (8.4-10.2); Carbon Dioxide 27 mmol/L (22-30); Chloride 107 mmol/L (98-107); Estimated Glomerular Filt Rate > 60; Glucose 82 mg/dL (65-110); Potassium 3.4 mmol/L (3.4-5.0); Sodium 131 mmol/L (137-145)
[2022-10-25] MEDS: SODIUM CHLORIDE 0.9% IV 1,000 ML 999 ML IV CONT (20:26)
[2022-10-25 20:54] LABS: Troponin I < 0.012 ng/mL (0.000-0.034)
[2022-10-25 21:09] LABS: Appearance Urine Slightly Cloudy (Clear); Bilirubin Urine 1+ (Negative); Blood Urine Negative (Negative); Color Urine Yellow (Yellow); Glucose Urine UA Trace mg/dL (Negative); Influenza A QL RT-PCR Negative (Negative); Influenza B QL RT-PCR Negative (Negative); Ketones Urine 1+ mg/dL (Negative); Leukocyte Esterase Ur 3+ LEU/UL (Negative); Nitrate Urine Negative (Negative); Protein Urine 1+ mg/dL (Negative); SARS-CoV-2 RNA PCR Negative; Specific Grav Ur 1.015 (1.001-1.035)
[2022-10-25 21:22] LABS: Bacteria Urine 1+ /hpf; Mucus Urine Heavy /lpf; Squamous Epithelial Cell Urine Rare /hpf (Few); WBC Urine >75 /hpf
[2022-10-25 21:23] LABS: Add Urine Microscopic? YES
[2022-10-26] VITALS (7 sets, daily range): BP systolic 83–135; BP diastolic 49–94; PULSE 78–82; RESP 16–22; TEMP 35.7–36.1; O2SAT 95–100; BMI 35.0; BMI 33.0
[2022-10-26 00:01] LABS: Troponin I < 0.012 ng/mL (0.000-0.034)
--- NOTE | 2022-10-26 00:07 | PM.IMHP ---
H&P: HPI History of Present Illness Date/Time: 10/26/22 00:07 Chief Complaint: weakness Narrative: This is a 72-year-old male who is bedbound, erik lift, patient [facility] at [facility], past medical history significant for a stroke, hypothyroidism, coronary artery disease, atrial fibrillation rate control and anticoagulated. patient was brought to the emergency room due to generalized weakness according to patient when he was placed on the Erik lift he felt dizzy and weak. He denies any cough, sputum production, states that he feels cold, Patient denies any nausea, vomiting, shortness of breath, no chest pain. preliminary workup was significant for urinalysis with numerous WBCs present, a chest x-ray showed infiltrate. Patient is been admitted for further evaluation management and treatment. Review of Systems Review of Systems: Dizziness, generalized weakness. Constitutional: Constitutional: Denies chills, Denies fever(s), Denies night sweats, Reports poor appetite and Reports weakness Eyes: Eyes: Denies change in vision ENT: Denies dysphagia, Denies vertigo, Denies dizziness and Denies odynophagia Cardiovascular: Cardiovascular: Denies chest pain, Denies leg edema, Reports lightheadedness and Denies dyspnea Respiratory: Respiratory: Denies cough, Denies excessive phlegm production and Denies dyspnea Gastrointestinal: Gastrointestinal: Denies abdominal pain, Denies dyspepsia, Denies heartburn, Denies diarrhea, Denies nausea and Denies vomiting Genitourinary: Genitourinary: Denies dysuria Musculoskeletal: Musculoskeletal: Reports muscle weakness Integumentary/Breasts: Skin/Breast: Denies rash Neurologic: Reports system reviewed and no additional complaints, except as documented Endocrine: Endocrine: Denies cold intolerance, Denies flushing, Denies heat intolerance, Denies polyphagia, Denies polydipsia and Denies palpitations Hematologic/Lymphatic: Hematologic/Lymphatic: Reports no additional hematologic/lymphatic complaints and Reports as per HPI Allergic/Immunologic: Allergic/Immunologic: Reports no additional allergic/immunologic complaints and Reports as per HPI PMF Past Medical History Medical History Asthma Ataxia B12 deficiency Cervical spondylosis with myelopathy Cervical stenosis of spinal canal Dysautonomia orthostatic hypotension syndrome Enlarged prostate without lower urinary tract symptoms (luts) Iron deficiency anemia, unspecified Lumbar spondylosis Lumbar stenosis with neurogenic claudication MDD (major depressive disorder) Mixed hyperlipidemia Parkinsons disease Paroxysmal atrial fibrillation Polyneuropathy associated with underlying disease TIA (transient ischemic attack) (~2014) Type 2 diabetes mellitus with diabetic neuropathy, with long-term current use of insulin Vitamin D deficiency, unspecified Surgical History Surgical History H/O gastric sleeve Performed in 1999 and converted to a Calin-en-Y gastric bypass in 2009 the patient's preop weight was 620 lb H/O inguinal hernia repair History of cardiac catheterization X4 History of coronary artery stent placement Most recent stent within the RCA placed June 2022 History of right knee joint replacement History of right shoulder replacement History of Calin-en-Y gastric bypass History of tonsillectomy and adenoidectomy History of ventral hernia repair Implantable intrathecal infusion pump present Morphine pump July 2021 Status post cataract extraction of both eyes with insertion of intraocular lens Status post open reduction with internal fixation of fracture Right ankle fracture with subsequent removal of hardware due to infection Family History Family History Sibling Hypertension Mother Family history of chronic obstructive pulmonary disease Father Carcinoma
--- NOTE | 2022-10-26 02:42 | ADMGEN ---
This patient, Sohail Lewis, was admitted to [facility] Surg Room 316-01. Patient/family oriented to hospital policies and general routines including ID bracelet, bed and alarms, visiting hours, pain management, procedures, bathroom and other care routines, personal items, smoking policy, room service/diet, and visiting hours. Information on how to activate the Rapid Response Team has been discussed. Patient/Family are encouraged to report perceived risks to care and to ask questions if they do not understand what they are told or what they should do.
[2022-10-26 08:20] LABS: Glucose Point of Care 75 mg/dl (65-105)
[2022-10-26] MEDS: CARBIDOPA/LEVODOPA 25/100 MG TABLET 2 TABLET PO (08:34)
[2022-10-26] MEDS: DULoxetine HCL 60 MG CAPSULE.DR PO ×2 (08:34→21:23)
[2022-10-26] MEDS: FERROUS SULFATE 324 MG TABLET PO (08:34)
[2022-10-26] MEDS: CLOPIDOGREL BISULFATE 75 MG TABLET PO (08:34)
[2022-10-26] MEDS: CALCIUM CARBONATE (OSCAL) 500 MG TABLET 1000 MG PO (08:34)
[2022-10-26] MEDS: LEVOTHYROXINE SODIUM 25 MCG TABLET PO (08:34)
[2022-10-26] MEDS: TOPIRAMATE 25 MG TABLET 50 MG PO ×2 (08:35→21:24)
[2022-10-26] MEDS: RIVAROXABAN 20 MG TABLET PO (16:59)
[2022-10-26] MEDS: TAMSULOSIN HCL 0.4 MG CAPSULE PO (21:23)
[2022-10-26] MEDS: traZODone HCL 50 MG TABLET 100 MG PO (21:24)
[2022-10-27 05:31] VITALS: BP 98/51; PULSE 81; RESP 18; TEMP 35.8; O2SAT 95
[2022-10-27] MEDS: LEVOTHYROXINE SODIUM 25 MCG TABLET PO (06:21)
[2022-10-27 07:20] LABS: Anion Gap 0 mmol/L (8-16); Blood Urea Nitrogen 13 mg/dL (9-20); Calcium 7.4 mg/dL (8.4-10.2); Carbon Dioxide 29 mmol/L (22-30); Chloride 109 mmol/L (98-107); Estimated CRCL calculation 135 ml/min; Estimated Glomerular Filt Rate > 60; Glucose 77 mg/dL (65-110); Potassium 3.1 mmol/L (3.4-5.0); Sodium 138 mmol/L (137-145)
[2022-10-27] MEDS: DULoxetine HCL 60 MG CAPSULE.DR PO (08:53)
[2022-10-27] MEDS: FERROUS SULFATE 324 MG TABLET PO (08:54)
[2022-10-27] MEDS: POTASSIUM CHLORIDE 20 MEQ TABLET 40 MEQ PO (08:54)
[2022-10-27] MEDS: CLOPIDOGREL BISULFATE 75 MG TABLET PO (08:54)
--- NOTE | 2022-10-27 10:06 | PM.DS ---
DS: Admitting Diagnosis Discharge Date 10/27/2022 Admitting Diagnosis UTI DS: Discharge Diagnosis Discharge Diagnosis (1) Urinary tract infection: Code(s): N39.0 - Urinary tract infection, site not specified Status: Acute (2) Altered mental status: Code(s): R41.82 - Altered mental status, unspecified Status: Acute DS: Summary Hospital Course Hospital Course: ?This is a 72-year-old male who is bedbound, erik lift,? patient lives at [facility],? past medical history significant for a stroke, hypothyroidism, coronary artery disease, atrial fibrillation rate control and anticoagulated. patient was brought to the emergency room due to generalized weakness according to patient when he was placed on the Erik lift he felt dizzy and weak.? He denies any cough, sputum production, states that he feels cold, ? Patient denies any nausea, vomiting, shortness of breath, no chest pain. preliminary workup was significant for urinalysis with numerous WBCs present.? Patient was started on IV Rocephin. Blood and urine Cultures have been negative. Today patient is back to baseline and is being discharged back to [facility] with IV Rocephin for 3 more days Time Spent with Patient Time attestation: Total time spent providing and/or coordinating discharge services: Exam Narrative: patient is laying in a stretcher Const: General: comfortable, no acute distress, well developed, ill appearing chronically, lethargic and average body habitus Nutritional Appearance: average body habitus Orientation/consciousness: patient oriented x3 HENMT: Head: normal to inspection, normocephalic and atraumatic Ears: hearing grossly normal bilaterally Face/Nose/Sinus: normal facial exam Face and sinus: normal facial exam Eyes: General: appearance normal, both eyes and all related structures Pupils: Equal, round and reactive pupils present EOM: EOMs intact bilaterally Neck: Neck: full ROM, no lymphadenopathy and no JVD Thyroid: thyroid normal Lymphatic: no lymphadenopathy noted Resp: Effort & Inspection: normal respiratory effort and able to speak in complete sentences Auscultation: clear to auscultation bilaterally Cardio: Jugular venous distension: no JVD Rate: regular rate Rhythm: regular rhythm Heart sounds: S1 normal heart sound present and S2 normal heart sound present GI: GI Palp: Yes Soft to palpation and Yes No hepatosplenomegaly present : General: Yes deferred Skin: Rashes: no rashes Wounds: no wounds Neuro: General: patient oriented x3 and CN's II-XI intact bilaterally Cranial nerves: Yes CN's II-XII intact bilaterally and Yes Equal, round and reactive pupils present Cognition (Neuro): normal cognition Speech: normal speech Gait exam (Neuro): Other gait observations present ( bed bound) Motor exam (neuro): Other motor observations present ( quadriplegic as 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) Extrem: General: normal to inspection, full ROM, no joint enlargement and no pedal edema DS: Data Data Completed and Pending Labs on day of discharge: Labs from last 24 hours 10/27/22 06:44 Sodium 138 Potassium 3.1 L Chloride 109 H Carbon Dioxide 29 Anion Gap 0 L BUN 13 Creatinine 0.60 L Estim Creat Clear Calc 135 Estimated GFR > 60 Glucose 77 Calcium 7.4 L Preliminary micro results at discharge 10/25/22 20:11 Blood Culture - Preliminary Blood 10/25/22 20:11 Blood Culture - Preliminary Blood Discharge Plan Discharge Discharging Clinician: Kodi Ponce Anticipated Discharge Date/Time: 10/27/22 09:40 Patient Disposition: SNF Activity: march shower Diet: heart healthy Patient Instructions: Rivaroxaban (By mouth) Stand Alone Forms: General Discharge Information Discharge Medications: New ceftriaxone 1 gram Recon Soln 1 g IV Q24H 3 Days Qty: 3 0RF Continued sotalol 80 mg tablet 80 mg PO BID mirtazapine 30 mg tablet 45 mg PO HS carbidop
[2022-10-27 11:46] LABS: EDCOVIDSCREEN Negative (Negative)
== END 2022-10-27 13:39 | DRG 690 ==
LOC: ANHED 23:22 → ANH3MEDSUR 10-26 00:42
PROVIDERS: Admitting Provider Internal Medicine; Emergency Provider Emergency Medicine; PCP Family Medicine; Visit Provider Hospitalist
DX: N39.0 Urinary tract infection, site not specified (principal); M47.12 Other spondylosis with myelopathy, cervical region; D50.9 Iron deficiency anemia, unspecified; E78.2 Mixed hyperlipidemia; E11.42 Type 2 diabetes mellitus with diabetic polyneuropathy; E53.8 Deficiency of other specified B group vitamins; E03.9 Hypothyroidism, unspecified; E55.9 Vitamin D deficiency, unspecified; F32.9 Major depressive disorder, single episode, unspecified; G20 Parkinson's disease; I25.10 Atherosclerotic heart disease of native coronary artery without angina pectoris; I69.393 Ataxia following cerebral infarction; I48.0 Paroxysmal atrial fibrillation; J45.909 Unspecified asthma, uncomplicated; M47.816 Spondylosis without myelopathy or radiculopathy, lumbar region; M48.062 Spinal stenosis, lumbar region with neurogenic claudication; M48.02 Spinal stenosis, cervical region; N40.0 Benign prostatic hyperplasia without lower urinary tract symptoms; Z95.1 Presence of aortocoronary bypass graft; Z79.4 Long term (current) use of insulin; Z96.651 Presence of right artificial knee joint; Z96.611 Presence of right artificial shoulder joint; Z98.41 Cataract extraction status, right eye; Z98.42 Cataract extraction status, left eye; Z96.1 Presence of intraocular lens; Z98.84 Bariatric surgery status; Z20.822 Contact with and (suspected) exposure to COVID-19; Z79.02 Long term (current) use of antithrombotics/antiplatelets; Z74.01 Bed confinement status; Z79.01 Long term (current) use of anticoagulants
CPT/HCPCS: 36415; 51701; 71045; 80048; 80053; 81001; 82948; 84443; 84484; 85025; 85610; 85730; 87040; 87086; 87088; 87426; 87636; 93005; 96360; 99285; A9270; C9803; J0696; J7030